=== PATIENT | female | born 1995 | race Caucasian/White ===

== ENCOUNTER 2023-07-02 20:39 | Outpatient (REF) | payer OTHER, SELFPAY ==
[2023-07-05 10:13] LABS: Age Gdln ACOG Testing Note (.); IGP, rfx Aptima HPV ASCU Note (.)
== END 2023-07-02 20:40 | disposition home or self-care (01) ==
LOC: LAB 20:39
PROVIDERS: Visit Provider Obstetrics & Gynecology
DX: Z01.419 Encounter for gynecological examination (general) (routine) without abnormal findings (principal)
CPT/HCPCS: G0145

== ENCOUNTER 2024-07-08 | Outpatient (REF) | payer OTHER, SELFPAY ==
--- OUTSIDE RECORDS SUMMARY | 2024-07-09 09:37 | XMS_ITS | CCD ---
Author Organization [facility] Care Team Providers Care Diagnostic Tech Name Role Phone MARY, DR ENRIQUEZ Admitting Unavailable MARY, DR ENRIQUEZ Attending Unavailable HOUSE, DR CHRISTINE Primary Care Unavailable MARY, DR ENRIQUEZ Consulting Unavailable ZIEBER, DR KETTY Kumar Consulting Unavailable MARY, DR ENRIQUEZ Admitting Unavailable MARY, DR ENRIQUEZ Attending Unavailable HOUSE, DR CHRISTINE Primary Care Unavailable MARY, DR ENRIQUEZ Consulting Unavailable REQUEST, DR NONE LISTED Primary Care Unavaila ble KARASIK, DR ALANIS Admitting Unavailable KARASIK, DR ALANIS Attending Unavailable KARASIK, DR ALANIS Consulting Unavailable MARY, DR ENRIQUEZ Consulting Unavailable ZIEBER, DR KETTY Kumar Consulting Unavailable MARY, DR ENRIQUEZ Admitting Unavailable MARY, DR ENRIQUEZ Attending Unavailable MARY, DR ENRIQUEZ Consulting Unavailable REQUEST, DR NIEOT LISTED Primary Care Unavaila ble MARY, DR ENRIQUEZ Admitting Unavailable MARY, DR ENRIQUEZ Attending Unavailable REQUEST, DR NIETO LISTED Primary Care Unavaila ble MARY, DR ENRIQUEZ Consulting Unavailable REQUEST, NONE LISTED Primary Care Unavaila ble KARASIK, DR ALANIS Admitting Unavailable KARASIK, DR ALANIS Attending Unavailable KARASIK, DR ALANIS Consulting Unavailable MARY, DR ENRIQUEZ Consulting Unavailable ZIEBER, DR KETTY Kumar Consulting Unavailable MARY, DR ENRIQUEZ Attending Unavailable REQUEST, NONE LISTED Primary Care Unavaila ble MARY, DR ENRIQUEZ Consulting Unavailable MARY, DR ENRIQUEZ Admitting Unavailable ZIEBER, DR KETTY Kumar Consulting Unavailable REQUEST, NONE LISTED Primary Care Unavaila ble KARASIK, DR ALANIS Admitting Unavailable KARASIK, DR ALANIS Attending Unavailable KARASIK, DR ALANIS Consulting Unavailable MARY, DR ENRIQUEZ Consulting Unavailable ZIEBER, DR KETTY Kumar Consulting Unavailable MARY, DR ENRIQUEZ Admitting Unavailable MARY, DR ENRIQUEZ Attending Unavailable HOUSE, DR CHRISTINE Primary Care Unavailable MARY, DR ENRIQUEZ Consulting Unavailable MARY, DR ENRIQUEZ Admitting Unavailable MARY, DR ENRIQUEZ Attending Unavailable REQUEST, DR NONE LISTED Primary Care Unavaila ble MARY, DR ENRIQUEZ Consulting Unavailable MARY, DR ENRIQUEZ Admitting Unavailable MARY, DR ENRIQUEZ Attending Unavailable REQUEST, DR NONE LISTED Primary Care Unavaila ble MARY, DR ENRIQUEZ Consulting Unavailable ZIEBER, DR KETTY Kumar Consulting Unavailable MARY, DR ENRIQUEZ Admitting Unavailable MARY, DR ENRIQUEZ Attending Unavailable HOUSE, DR CHRISTINE Primary Care Unavailable MARY, DR ENRIQUEZ Consulting Unavailable MARY, DR ENRIQUEZ Admitting Unavailable MARY, DR ENRIQUEZ Attending Unavailable REQUEST, DR NONE LISTED Primary Care Unavaila ble MARY, DR ENRIQUEZ Consulting Unavailable ZIEBER, DR KETTY Kumar Consulting Unavailable MARY, DR ENRIQUEZ Admitting Unavailable MARY, DR ENRIQUEZ Attending Unavailable REQUEST, DR NONE LISTED Primary Care Unavaila ble WEST, DR CHANTELL Biggs Consulting Unavailable MARY, DR ENRIQUEZ Consulting Unavailable KARASIK, DR ALANIS Admitting Unavailable KARASIK, DR ALANIS Attending Unavailable REQUEST, DR NONE LISTED Primary Care Unavaila ble KARASIK, DR ALANIS Consulting Unavailable MARY, DR ENRIQUEZ Consulting Unavailable ZIEBER, DR KETTY Kumar Consulting Unavailable MARY, DR ENRIQUEZ Admitting Unavailable MARY, DR ENRIQUEZ Attending Unavailable REQUEST, DR NONE LISTED Primary Care Unavaila ble MARY, DR ENRIQUEZ Consulting Unavailable ZIEBER, DR KETTY Kumar Consulting Unavailable MARY, DR ENRIQUEZ Admitting Unavailable MARY, DR ENRIQUEZ Attending Unavailable REQUEST, NONE LISTED Primary Care Unavaila ble MARY, DR ENRIQUEZ Consulting Unavailable MARY, DR ENRIQUEZ Admitting Unavailable MARY, DR ENRIQUEZ Attending Unavailable REQUEST, NONE LISTED Primary Care Unavaila ble MARY, DR ENRIQUEZ Admitting Unavailable MARY, DR ENRIQUEZ Attending Unavailable HOUSE, DR CHRISTINE Primary Care Unavailable MARY, DR ENRIQUEZ Consulting Unavailable MARY, DR ENRIQUEZ Admitting Unavailable MARY, DR ENRIQUEZ Attending Unavailable REQUEST, DR NONE LISTED Primary Care Unavaila ble REQUEST, NONE LISTED Primary Care Unavaila ble KARASIK, DR ALANIS Admitting Unavailable KARASIK, DR ALANIS Attending Unavailable KARASIK, DR ALANIS Consulting Unavailable MARY, DR ENRIQUEZ Consulting Unavailable ZIEBER, DR KETTY Kumar Consulting Unavailable MARY, DR ENRIQUEZ Admitting Unavailable MARY, DR ENRIQUEZ Attending Unavailable REQUEST, DR NONE LISTED Primary Care Unavaila ble MARY, DR ENRIQUEZ Admitting Unavailable MARY, DR ENRIQUEZ Attending Unavailable REQUEST, NONE LISTED Primary Care Unavaila ble MARY, DR ENRIQUEZ Admitting Unavailable MARY, DR ENRIQUEZ Attending Unavailable REQUEST, NONE LISTED Primary Care Unavaila ble KARASIK, DR ALANIS Consulting Unavailable MARY, DR ENRIQUEZ Consulting Unavailable MORGOS, APOLINAR Consulting Unavailable MARY, DR ENRIQUEZ Procedure Practitioner Unavailab lizzie MARCANO, ADA SALMERON Consulting Unava ilable MARY, DR ENRIQUEZ Admitting Unavailable MARY, DR ENRIQUEZ Attending Unavailable REQUEST, NONE LISTED Primary Care Unavaila ble MARY, DR ENRIQUEZ Consulting Unavailable REQUEST, NONE LISTED Primary Care Unavaila ble KARASIK, DR ALANIS Admitting Unavailable KARASIK, DR ALANIS Attending Unavailable KARASIK, DR ALANIS Consulting Unavailable MARY, DR ENRIQUEZ Consulting Unavailable Rekha Ramos Unavailable MINA HERNANDEZ Attending Unavailable ZURI CASSIDY Attending Unavailable ZURI CASSIDY Attending Unavailable FURLONGNGHIA Attending Unavailable FURLONG, NGHIA G Referring Unavailable FURLONG, NGHIA G Primary Care Unavailable FURLONG, NGHIA Rosenbaum Attending Unavailable FURLONG, NGHIA G Primary Care Unavailable FURLONG, NGHIA G Attending Unavailable FURLONG, NGHIA G Referring Unavailable FURLONG, NGHIA G Primary Care Unavailable FURLONG, NGHIA G Referring Unavailable FURLONG, NGHIA G Primary Care Unavailable Furlong Nghia ROBLEDO Primary Care Provider Isaac Perez MD Primary Care Provider Medications Current Medications Medication Drug Class(es) Dates Sig (Normalized) Sig (Original) amoxicillin 875 mg oral tablet (2 sources) Penicillin-class Antibacterial Start: 08-11-2022 take 1 tablet by mouth every twelve hours Amoxicillin 875 MG 1 tablet Orally every 12 hrs for 10 days Jul, Active Start: 05-26-2022 take 1 capsule by [facility] every eight hours Amoxicillin 500 MG 1 capsule Orally three times a day for 10 day(s) May, Not-Taking Citalopram (1 source) Serotonin Reuptake Inhibitor CeleXA Active escitalopram 10 mg oral tablet (3 sources) Serotonin Reuptake Inhibitor Start: take 1 tablet by mouth in the morning escitalopram (LEXAPRO) 10 mg tablet Indications: Anxiety TAKE 1 TABLET (10 MG TOTAL) BY MOUTH IN THE MORNING 30 tablet 3 05/07/2024 Active Start: 01-31-2024 End: 05-07-2024 take 1 tablet by mouth in the morning escitalopram (LEXAPRO) 10 mg tablet Indications: Anxiety Take 1 tablet (10 mg total) by mouth in the morning. 30 tablet 2 01/31/2024 05/07/2024 Discontinued fluticasone propionate 0.05 mg/actuat metered dose nasal spray (1 source) Corticosteroid Start: 08-11-2022 take 1 spray(s) nasal route once daily Fluticasone Propionate 50 MCG/ACT 1 spray in each nostril Nasally Once a day for 21 days Jul, Active lamoTRIgine (2 sources) Mood Stabilizer, Anti-epileptic Agent lamoTRIgine 25 MG (Prior Auth: Rx Ref#:[id number]) Oral for 30 Not-Taking LaMICtal Active norethindrone 0.35 mg oral tablet (2 sources) Start: 04-13-2023 take 1 tablet by mouth once daily Incassia 0.35 MG tablet Indications: Encounter for other general counseling and advice on contraception TAKE 1 TABLET BY MOUTH EVERY DAY FOR 28 DAYS 28 tablet 11 04/13/2023 Active Start: 04-13-2023 End: 03-20-2024 INCASSIA 0.35 mg tablet 03/1903/20/2024 Discontinued (Therapy completed) Problems Active Problems Problem Classification Problem Date Documented Da te Episodic/Chronic Anxiety disorders (3 sources) Anxiety disorder, unspecified; Translations: [Anxiety] Onset: 01-31-2024 05-07-2024 Chronic Diabetes or abnormal glucose tolerance complicating ; childbirth; or the puerperium (7 sources) Gestational diabetes mellitus in childbirth, controlled by oral hypoglycemic drugs; Translations: [Gestational diabetes mellitus in , unspecified control] Onset: 03-29-2022 Episodic distress and abnormal forces of labor (1 source) Primary inadequate contractions; Translations: [PRIMARY INADEQUATE CONTRACTIONS] Onset: 04-11-2022 Episodic Immunizations and screening for infectious disease (3 sources) Encounter for screening for human papillomavirus (HPV); Translations: [Encounter for screening for infections with a predominantly sexual mode of transmission] Onset: 09-16-2021 Episodic Malposition; malpresentation (1 source) Maternal care for high head at term, not applicable or unspecified; Translations: [MATERNAL CARE HIGH HEAD TERM NA/UNS] Onset: 04-11-2022 Episodic Menstrual disorders (4 sources) Irregular menstruation, unspecified; Translations: [IRREGULAR MENSTRUATION UNSPECIFIED] Onset: 09-14-2021 Chronic Mood disorders (3 sources) Bipolar disorder, most recent episode depression; Translations: [Bipolar disorder, unspecified] Onset: 04-16-2023 03-20-2024 Chronic Nausea and vomiting (1 source) Vomiting Onset: 01-01-2024 Episodic Other aftercare (1 source) shelter (current) use of aspirin; Translations: [[facility] CURRENT USE OF ASPIRIN] Onset: 04-11-2022 Episodic Other aftercare (1 source) Other correction (current) drug therapy; Translations: [OTH [facility] CURRENT DRUG THERAPY] Onset: 04-11-2022 Episodic Other gastrointestinal disorders (1 source) Diarrhea Onset: 01-01-2024 Episodic Other nutritional; endocrine; and metabolic disorders (2 sources) Other obesity due to excess calories; Translations: [Other obesity due to excess calories] Onset: 04-16-2023 Chronic Other nutritional; endocrine; and metabolic disorders (2 sources) Body mass index (BMI) 38.0-38.9, adult; Translations: [Body mass index (BMI) 38.0-38.9, adult] Onset: 04-16-2023 Chronic Other nutritional; endocrine; and metabolic disorders (3 sources) Obesity caused by energy imbalance; Translations: [Class 2 obesity due to excess calories without serious comorbidity with body mass index (BMI) of 38.0 to 38.9 in adult] Onset: 04-16-2023 03-20-2024 Chronic Other and delivery including normal (13 sources) Encounter for care and examination of lactating mother; Translations: [Encounter for routine follow-up] Onset: 11-04-2021 Episodic Other screening for suspected conditions (not mental disorders or infectious disease) (15 sources) Encounter for screening for malignant neoplasm of cervix; Translations: [Encounter for screening for Streptococcus B] Onset: 09-16-2021 Episodic Other upper respiratory infections (1 source) Acute pharyngitis, unspecified Episodic Otitis media and related conditions (1 source) Otitis media, unspecified, bilateral Episodic Residual codes; unclassified (1 source) 39 weeks gestation of ; Translations: [39 WEEKS GESTATION OF ] Onset: 04-11-2022 Episodic Unclassified (1 source) CONTACT W/AND (SUSP) EXPOS COVID-19; Translations: [CONTACT W/AND (SUSP) EXPOS COVID-19] Onset: 04-11-2022 Unclassified (2 sources) Obesity, class 2; Translations: [Obesity, class 2] Onset: 04-16-2023 Unclassified (1 source) Annual Exam Onset: 03-20-2024 Unclassified (1 source) FMLA Onset: 01-01-2024 Past or Other Problems Problem Classification Problem Date Documented Date Episodic/Chronic Administrative/social admission (1 source) Dietary counseling and surveillance; Translations: [DIETARY COUNSELING AND SURVEILLANCE] Onset: 11-25-2021 Episodic Diabetes mellitus without complication (4 sources) Other abnormal glucose; Translations: [OTHER ABNORMAL GLUCOSE] Onset: 11-15-2021 Episodic Mood disorders (2 sources) Mood disorders Onset: 04-16-2023 04-16-2023 Other complications of (1 source) Other placental disorders, first trimester; Translations: [OTH PLACENTAL DISORDER FIRST TRI] Onset: 08-29-2021 Episodic Other female genital disorders (4 sources) Other specified noninflammatory disorders of vagina; Translations: [OTH SPEC NONINFLAMMATORY D/O VAGINA] Onset: 03-13-2022 Episodic Residual codes; unclassified (1 source) 38 weeks gestation of ; Translations: [38 WEEKS GESTATION OF ] Onset: 03-24-2022 Episodic Residual codes; unclassified (1 source) 37 weeks gestation of ; Translations: [37 WEEKS GESTATION OF ] Onset: 03-17-2022 Episodic Residual codes; unclassified (1 source) 36 weeks gestation of ; Translations: [36 WEEKS GESTATION OF ] Onset: 03-09-2022 Episodic Residual codes; unclassified (1 source) 34 weeks gestation of ; Translations: [34 WEEKS GESTATION OF ] Onset: 02-26-2022 Episodic Residual codes; unclassified (1 source) 33 weeks gestation of ; Translations: [33 WEEKS GESTATION OF ] Onset: 02-16-2022 Episodic Residual codes; unclassified (1 source) 32 weeks gestation of ; Translations: [32 WEEKS GESTATION OF ] Onset: 02-10-2022 Episodic Residual codes; unclassified (1 source) 9 weeks gestation of ; Translations: [9 WEEKS GESTATION OF ] Onset: 08-29-2021 Episodic Unclassified (1 source) Contact with and (suspected) exposure to covid-19 Z20.822 Unclassified (2 sources) Onset: 04-16-2023 04-16-2023 Results Test Name Value Interpretation Reference Range Facility COMPREHENSIVE METABOLIC PANE [facility] 03-20-2024 Albumin [Mass/Vol] 4.5 g/dL Normal 3.2-5.3 [facility] Comment on above: Performed By: #### C JAYDEN, 44525-3, 6-3 #### [facility] ([id number]) [address], [address] [place] [address] ALP [Catalytic activity/Vol] 64 U/L Normal 39-130 [facility] Comment on above: Performed By: #### Jeb CARPENTER, 74926-0, 6-3 #### [facility] ([id number]) [address], [address] [place] [address] ALT [Catalytic activity/Vol] 15 U/L Normal 0-31 [facility] Comment on above: Performed By: #### Jeb CARPENTER, 12175-8, 6-3 #### [facility] ([id number]) [address], [address] [place] [address] Anion gap [Moles/Vol] 11 mmol/L Normal 5-15 [facility] Comment on above: Performed By: #### Jeb CARPENTER, 20949-0, 3015-3 #### [facility] ([id number]) [address], [address] [place] [address] AST [Catalytic activity/Vol] 20 U/L Normal 0-41 [facility] Comment on above: Performed By: #### C JAYDEN, 87834-5, 6-3 #### [facility] ([id number]) [address], [address] [place] [address] Bilirubin [Mass/Vol] 0.3 mg/dL Normal 0.3-1.2 [facility] Comment on above: Performed By: #### C JAYDEN, 59515-5, 3015-3 #### [facility] ([id number]) [address], [address] [place] [address] Calcium [Mass/Vol] 9.6 mg/dL Normal 8.5-10.5 [facility] Comment on above: Performed By: #### Jeb CARPENTER, 37710-0, 3015-3 #### [facility] ([id number]) [address], [address] [place] [address] Chloride [Moles/Vol] 101 mmol/L Normal 98-109 [facility] Comment on above: Performed By: #### Jeb CARPENTER, 38187-3, 3015-3 #### [facility] ([id number]) [address], [address] [place] [address] CO2 [Moles/Vol] 24 mmol/L Normal 22-32 [facility] Comment on above: Performed By: #### Jeb CARPENTER, 83718-9, 6-3 #### [facility] ([id number]) [address], [address] [place] [address] Creatinine [Mass/Vol] 0.95 mg/dL Normal 0.40-1.00 [facility] Comment on above: Result Comment: METH OD TRACEABLE TO IDMS STANDARD Performed By: #### Jeb CARPENTER, 91531-0, 3015-3 #### [facility] ([id number]) [address], [address] [place] [address] GFR/1.73 sq M.predicted among non-blacks MDRD (S/P/Bld) [Vol rate/Area] 85 mL/min/{1.73_m2} Normal >59 [facility] Comment on above: Result Comment: Reported eGFR is based on the CKD-EPI 2020 equation that does not use a race coefficient. Performed By: #### Jeb CARPENTER, 75946-2, 3015-3 #### [facility] ([id number]) [address], [address] [place] [address] Glucose [Mass/Vol] 81 mg/dL Normal 65-99 [facility] Comment on above: Performed By: #### Jeb CARPENTER, 58782-5, 3015-3 #### [facility] ([id number]) [address] [address] [place] [address] Potassium [Moles/Vol] 3.6 mmol/L Normal 3.5-5.0 [facility] Comment on above: Performed By: #### Jeb CARPENTER, 25587-6, 3015-3 #### [facility] ([id number]) [address] [place] [address] Protein [Mass/Vol] 7.9 g/dL Normal 6.0-8.0 [facility] Comment on above: Performed By: #### Jeb CARPENTER, 65177-6, 3015-3 #### [facility] ([id number]) [address], [address] [place] [address] Sodium [Moles/Vol] 136 mmol/L Normal 134-146 [facility] Comment on above: Performed By: #### Jeb CARPENTER, 97646-4, 3015-3 #### [facility] ([id number]) [address] [address] [place] [address] Urea nitrogen [Mass/Vol] 24 mg/dL High 5-23 [facility] Comment on above: Performed By: #### Jeb CARPENTER, 30908-6, 6-3 #### [facility] ([id number]) [address], [address] [place] [address] Lipid 1996 panelon 4 Cholesterol [Mass/Vol] 208 mg/dL High 150-200 [facility] Comment on above: Performed By: #### Jeb CARPENTER, 93492-4, 3015- #### [facility] ([id number]) [address], [address] [place] [address] Cholesterol in HDL [Mass/Vol] 43 mg/dL Normal >39 [facility] Comment on above: Result Comment: HDL <40 mg/dL - High Risk HDL > or = 40mg/dL- Desirable HDL >60 mg/dL - Negative Risk Performed By: #### Jeb CARPENTER, 83873-1, 3015-3 #### [facility] ([id number]) [address], [address] [place] [address] Cholesterol in LDL [Mass/Vol] 125 mg/dL Normal <130 [facility] Comment on above: Result Comment: LDL <100 mg/dL - Desirable LDL >160 mg/dL - High Risk Performed By: #### Jeb CARPENTER, 21971-5, 3015-3 #### [facility] ([id number]) [address], [address] [place] [address] Cholesterol in VLDL [Mass/Vol] 40 mg/dL High 0-30 [facility] Comment on above: Performed By: #### Jeb CARPENTER, 95948-3, 3016-3 #### [facility] ([id number]) [address], [address] [place] [address] CHOLESTEROL:HDL 4.8 Normal 1.0-5.0 [facility] Comment on above: Performed By: #### Jeb CARPENTER, 59553-7, 3016-3 #### [facility] ([id number]) [address], [address] [place] [address] Triglyceride [Mass/Vol] 201 mg/dL High 27-150 [facility] Comment on above: Performed By: #### Jeb CARPENTER, 50250-7, 3016-3 #### [facility] ([id number]) [address], [address] [place] [address] TSH Qnon 03-20-2024 TSH 2.89 uIU/mL Normal 0.49-4.67 [facility] Comment on above: Performed By: #### Jeb CARPENTER, 81345-0, 6-3 #### [facility] ([id number]) [address], [address] [place] [address] COVID/FLU/RSV RT-PCRon 08-11 SARS-CoV-2 (COVID-19) RNA NADIA+probe Ql (Unsp spec) Negative [employer] [facility] [employer] Other COVID/FLU/RSV RT-PCR Negative [facility] [employer] Other Quick Strepon 08-11-2022 S. pyogenes Org specific cx Ql (Throat) Negative [employer] [facility] [employer] Other Quick Strep [employer] [facility] [employer] Other PAP ACOG PANEL 2: 21 to 29on 07-03-2022 . . Normal [facility] Comment on above: Performed By: #### 4 [id number] ####[facility] [address] [place], [place] [address]YpKristopher Goodman Age Gdln ACOG Testing 21-29 Normal [facility] Comment on above: Performed By: #### 4 [id number] ####[facility] [address] [place], [place] [address]DrKristopher Goodman DIAGNOSIS: Comment Normal [facility] Comment on above: Result Comment: NEGA TIVE FOR INTRAEPITHELIAL LESION OR MALIGNANCY. Performed By: #### 4 [id number] ####[facility] [address] [place], [place] [address]DrKristopher Goodman Methodology: Comment Normal [facility] Comment on above: Result Comment: This liquid based ThinPrep(R) pap test was screened with the use of an image guided system. Performed By: #### 4 [id number] ####[facility] [address] [place], [place] [address]DrKristopher Goodman Note: Comment Normal [facility] Comment on above: Result Comment: The Pap smear is a screening test designed to aid in the detection of premalignant and malignant conditions of the uterine cervix. It is not a diagnostic procedure and should not be used as the sole means of detecting cervical cancer. Both false-positive and false-negative reports do occur. . Performed By: #### 4 [id number] ####[facility] [address] [place], [place] [address]DrKristopher Goodman Performed by: Comment Normal [facility] Comment on above: Result Comment: Mily Ribeiro, Industrial Laborer (ASCP) Performed By: #### 4 [id number] ####[facility] [address] [place], [place] [address]DrKristopher Goodman Reflex Criteria: Comment Normal [facility] Comment on above: Result Comment: The HPV DNA reflex criteria were not met with this specimen result therefore, no HPV testing was performed. . Performed By: #### 4 [id number] ####[facility] [address] [place], [place] [address]DrKristopher Goodman Specimen adequacy: Comment Normal [facility] Comment on above: Result Comment: Sati sfactory for evaluation. Endocervical and/or squamous metaplastic cells (endocervical component) are present. Performed By: #### 4 [id number] ####[facility] [address] [place] [address]Dr. Jannie Goodman CBC AUTO DIFFon 04-02-2022 BASO # 0.0 103/ul Normal 0.0-0.1 [facility] Comment on above: Performed By: #### P LT #### [facility] [address] [place] [address] [address] Jannie Goodman Basophils/100 WBC (Bld) 0.2 % Normal 0.2-2.0 [facility] Comment on above: Performed By: #### P LT #### [facility] [address] [place] [address] [address] Jannie Goodman EO # 0.1 103/ul Normal 0.0-0.7 [facility] Comment on above: Performed By: #### P LT #### [facility] [address] [address] [address] Jannie Goodman Eosinophils/100 WBC (Bld) 0.4 % Critically low 0.9-7.0 [facility] Comment on above: Performed By: #### P LT #### [facility] [address] [place] [address] [address] Jannie Goodman Erythrocyte distribution width (RBC) [Ratio] 14.0 % Normal 11.0-15.0 [facility] Comment on above: Performed By: #### P LT #### [facility] [address] [address] [address] Jannie Goodman Hematocrit (Bld) [Volume fraction] 21.2 % Critically low 36.0-48.0 [facility] Comment on above: Performed By: #### P LT #### [facility] [address] [address] [address] Jannie Goodman Hemoglobin (Bld) [Mass/Vol] 6.9 g/dL Critically low 12.0-16.0 [facility] Comment on above: Performed By: #### P LT #### [facility] [address] [address] [address] Jannie Goodman IG # 0.05 10e3/ul Critically high 0.00-0.03 [facility] Comment on above: Performed By: #### P LT #### [facility] [address] [address] [address] Jannie Goodman IG % 0.4 % Normal 0.0-0.5 [facility] Comment on above: Performed By: #### P LT #### [facility] [facility] [address] [address] [address] Jannie Goodman LYMPH # 2.0 103/ul Normal 1.2-3.8 [facility] Comment on above: Performed By: #### P LT #### [facility] [address] [place] [address] Dr. Jannie Goodman Lymphocytes/100 WBC (Bld) 16.7 % Critically low 20.5-60.0 [facility] Comment on above: Performed By: #### P LT #### [facility] [address] [place] [address] Dr. Jannie Goodman MANUAL DIFF REQ NO Normal [facility] Comment on above: Performed By: #### P LT #### [facility] [address] [place] [address] Dr. Jannie Goodman MCH (RBC) [Entitic mass] 28.6 pg Normal 26.7-34.0 [facility] Comment on above: Performed By: #### P LT #### [facility] [address] [place] [address] Dr. Jannie Goodman MCHC (RBC) [Mass/Vol] 32.5 g/dL Normal 29.9-35.2 [facility] Comment on above: Performed By: #### P LT #### [facility] [address] [place] [address] Dr. Jannie Goodman MCV (RBC) [Entitic vol] 88.0 fL Normal 81.0-99.0 [facility] Comment on above: Performed By: #### P LT #### [facility] [address] [place] [address] Dr. Jannie Goodman MONO # 0.8 103/ul Normal 0.3-0.8 [facility] Comment on above: Performed By: #### P LT #### [facility] [address] [address] [address] Jannie Goodman Monocytes/100 WBC (Bld) 6.5 % Normal 1.7-12.0 [facility] Comment on above: Performed By: #### P LT #### [facility] [address] [address] [address] Jannie Goodman NEUT # 9.2 103/ul Critically high 1.4-6.5 [facility] Comment on above: Performed By: #### P LT #### [facility] [address] [address] [address] Jannie Goodman Neutrophils/100 WBC (Bld) 75.8 % Critically high 43.0-75.0 [facility] Comment on above: Performed By: #### P LT #### [facility] [address] [place] [address] Dr. Jannie Goodman Platelet mean volume (Bld) [Entitic vol] 10.1 fL Normal 9.5-13.5 [facility] Comment on above: Performed By: #### P LT #### [facility] [address] [address] [address] Jannie Goodman PLT 122 103/ul Critically low 150-450 [facility] Comment on above: Performed By: #### P LT #### [facility] [address] [address] [address] Jannie Goodman RBC 2.41 106/ul Critically low 4.20-5.40 [facility] Comment on above: Performed By: #### P LT #### [facility] [address] [address] [address] Jannie Goodman WBC 12.1 103/ul Critically high 4.0-11.0 [facility] Comment on above: Performed By: #### P LT #### [facility] [address] [address] [address] Jannie Goodman POINT OF CARE GLUCOSEon 03-18 Glucose [Mass/Vol] 111 mg/dL Critically high 74-106 [facility] Comment on above: Performed By: #### P LT #### [facility] [address] [address] [address] Jannie Goodman LDHon 03-31-2022 LDH 116 U/L Normal 81-234 [facility] Comment on above: Performed By: #### H CVPCRR #### [facility] [address] [address] [address] Jannie Goodman PLATELET COUNTon 03-31-2022 PLT 179 103/ul Normal 150-450 [facility] Comment on above: Performed By: #### P LT #### [facility] [address] [address] [address] Jannie Goodman PROF 14(COMP METB)on 022 Albumin [Mass/Vol] 2.6 g/dL Critically low 3.4-5.0 [facility] Comment on above: Performed By: #### H CVPCRR #### [facility] [address] [place] [address] Dr. Jannie Goodman Albumin/Globulin [Mass ratio] 0.7 {ratio} Normal [facility] Comment on above: Performed By: #### H CVPCRR #### [facility] [address] [address] [address] Jannie Goodman ALP [Catalytic activity/Vol] 144 U/L Critically high 46-116 [facility] Comment on above: Performed By: #### H CVPCRR #### [facility] [address] [place] [address] Dr. Jannie Goodman ALT [Catalytic activity/Vol] 16 U/L Normal 14-59 [facility] Comment on above: Performed By: #### H CVPCRR #### [facility] [address] [address] [address] Jannie Goodman Anion gap [Moles/Vol] 15.1 mmol/L Normal [facility] Comment on above: Performed By: #### H CVPCRR #### [facility] [address] [place] [address] Dr. Jannie Goodman AST [Catalytic activity/Vol] 13 U/L Critically low 15-37 [facility] Comment on above: Performed By: #### H CVPCRR #### [facility] [address] [address] [address] Jannie Goodman Bilirubin [Mass/Vol] 0.2 mg/dL Normal 0.2-1.0 [facility] Comment on above: Performed By: #### H CVPCRR #### [facility] [address] [address] [address] Jannie Goodman Calcium [Mass/Vol] 8.5 mg/dL Normal 8.5-10.1 [facility] Comment on above: Performed By: #### H CVPCRR #### [facility] [address] [place] [address] Dr. Jannie Goodman Chloride [Moles/Vol] 105 mmol/L Normal 98-107 [facility] Comment on above: Performed By: #### H CVPCRR #### [facility] [address] [place] [address] Dr. Jannie Goodman CO2 [Moles/Vol] 19.9 mmol/L Critically low 21.0-32.0 [facility] Comment on above: Performed By: #### H CVPCRR #### [facility] [address] [place] [address] Dr. Jannie Goodman Creatinine [Mass/Vol] 0.93 mg/dL Normal 0.55-1.02 [facility] Comment on above: Performed By: #### H CVPCRR #### [facility] [address] [place] [address] Dr. Jannie Goodman EGFR-AF MONTSERRATIAN >60 Normal >=60 [facility] Comment on above: Performed By: #### H CVPCRR #### [facility] [address] [place] [address] Dr. Jannie Goodman EGFR-NON AF MONTSERRATIAN >60 Normal >=60 [facility] Comment on above: Performed By: #### H CVPCRR #### [facility] [address] [place] [address] Dr. Jannie Goodman Globulin (S) [Mass/Vol] 3.9 g/dL Normal [facility] Comment on above: Performed By: #### H CVPCRR #### [facility] [address] [address] [address] Jannie Goodman Glucose [Mass/Vol] 121 mg/dL Critically high 74-106 [facility] Comment on above: Performed By: #### H CVPCRR #### [facility] [address] [place] [address] Dr. Jannie Goodman Potassium [Moles/Vol] 4.0 mmol/L Normal 3.5-5.1 [facility] Comment on above: Performed By: #### H CVPCRR #### [facility] [address] [place] [address] Dr. Jannie Goodman Protein [Mass/Vol] 6.5 g/dL Normal 6.4-8.2 [facility] Comment on above: Performed By: #### H CVPCRR #### [facility] [address] [place] [address] Dr. Jannie Goodman Sodium [Moles/Vol] 136 mmol/L Normal 136-145 [facility] Comment on above: Performed By: #### H CVPCRR #### [facility] [address] [place] [address] Dr. Jannie Goodman Urea nitrogen [Mass/Vol] 14.0 mg/dL Normal 7.0-18.0 [facility] Comment on above: Performed By: #### H CVPCRR #### [facility] [address] [place] [address] Dr. Jannie Goodman Urea nitrogen/Creatinine [Mass ratio] 15.1 mg/mg Normal [facility] Comment on above: Performed By: #### H CVPCRR #### [facility] [address] [place] [address] Dr. Jannie Goodman URIC ACID SERUMon 03-31-2022 Urate [Mass/Vol] 7.3 mg/dL Critically high 2.6-6.0 [facility] Comment on above: Performed By: #### H CVPCRR #### [facility] [address] [place] [address] Dr. Jannie Goodman CBC AUTO DIFFon 03-30-2022 BASO # 0.0 103/ul Normal 0.0-0.1 [facility] Comment on above: Performed By: #### P LT #### [facility] [address] [address] [address] Jannie Goodman Basophils/100 WBC (Bld) 0.1 % Critically low 0.2-2.0 [facility] Comment on above: Performed By: #### P LT #### [facility] [address] [place] [address] Dr. Jannie Goodman EO # 0.0 103/ul Normal 0.0-0.7 [facility] Comment on above: Performed By: #### P LT #### [facility] [address] [place] [address] Dr. Jannie Goodman Eosinophils/100 WBC (Bld) 0.4 % Critically low 0.9-7.0 [facility] Comment on above: Performed By: #### P LT #### [facility] [address] [place] [address] Dr. Jannie Goodman Erythrocyte distribution width (RBC) [Ratio] 13.2 % Normal 11.0-15.0 [facility] Comment on above: Performed By: #### P LT #### [facility] [address] [place] [address] Dr. Jannie Goodman Hematocrit (Bld) [Volume fraction] 31.1 % Critically low 36.0-48.0 [facility] Comment on above: Performed By: #### P LT #### [facility] [address] [place] [address] Dr. Jannie Goodman Hemoglobin (Bld) [Mass/Vol] 10.2 g/dL Critically low 12.0-16.0 [facility] Comment on above: Performed By: #### P LT #### [facility] [address] [place] [address] Dr. Jannie Goodman IG # 0.01 10e3/ul Normal 0.00-0.03 [facility] Comment on above: Performed By: #### P LT #### [facility] [address] [place] [address] Dr. Jannie Goodman IG % 0.1 % Normal 0.0-0.5 [facility] Comment on above: Performed By: #### P LT #### [facility] [address] [address] [address] Jannie Goodman LYMPH # 1.7 103/ul Normal 1.2-3.8 [facility] Comment on above: Performed By: #### P LT #### [facility] [address] [address] [address] Jannie Goodman Lymphocytes/100 WBC (Bld) 25.7 % Normal 20.5-60.0 [facility] Comment on above: Performed By: #### P LT #### [facility] [address] [place] [address] Dr. Jannie Goodman MANUAL DIFF REQ NO Normal [facility] Comment on above: Performed By: #### P LT #### [facility] [address] [place] [address] Dr. Jannie Goodman MCH (RBC) [Entitic mass] 27.9 pg Normal 26.7-34.0 [facility] Comment on above: Performed By: #### P LT #### [facility] [address] [place] [address] Dr. Jannie Goodman MCHC (RBC) [Mass/Vol] 32.8 g/dL Normal 29.9-35.2 [facility] Comment on above: Performed By: #### P LT #### [facility] [address] [place] [address] Dr. Jannie Goodman MCV (RBC) [Entitic vol] 85.0 fL Normal 81.0-99.0 [facility] Comment on above: Performed By: #### P LT #### [facility] [address] [place] [address] Dr. Jannie Goodman MONO # 0.5 103/ul Normal 0.3-0.8 [facility] Comment on above: Performed By: #### P LT #### [facility] [address] [place] [address] Dr. Jannie Goodman Monocytes/100 WBC (Bld) 6.8 % Normal 1.7-12.0 [facility] Comment on above: Performed By: #### P LT #### [facility] [address] [address] [address] Jannie Goodman NEUT # 4.5 103/ul Normal 1.4-6.5 [facility] Comment on above: Performed By: #### P LT #### [facility] [address] [address] [address] Jannie Goodman Neutrophils/100 WBC (Bld) 66.9 % Normal 43.0-75.0 [facility] Comment on above: Performed By: #### P LT #### [facility] [address] [address] [address] Jannie Goodman Platelet mean volume (Bld) [Entitic vol] 10.6 fL Normal 9.5-13.5 [facility] Comment on above: Performed By: #### P LT #### [facility] [address] [place] [address] Dr. Jannie Goodman PLT 159 103/ul Normal 150-450 [facility] Comment on above: Performed By: #### P LT #### [facility] [address] [place] [address] Dr. Jannie Goodman RBC 3.66 106/ul Critically low 4.20-5.40 [facility] Comment on above: Performed By: #### P LT #### [facility] [address] [place] [address] Dr. Jannie Goodman WBC 6.7 103/ul Normal 4.0-11.0 [facility] Comment on above: Performed By: #### P LT #### [facility] [address] [place] [address] Dr. Jannie Goodman Covid-19 PCR ([facility])on 03-18 SARS-CoV-2 (COVID-19) RNA NADIA+probe Ql (Unsp spec) Not detected Normal NOT DETECTED [facility] Comment on above: Result Comment: When diagnostic testing is negative, the possibility of a false negative should be considered in the context of a patient's recent exposures and the presence of clinical signs and symptoms consistent with SARS-CoV-2. This test is not yet approved or cleared by the [place] FDA. When there are no FDA-approved or cleared tests available, and other criteria are met, FDA can make tests available under an emergency access mechanism called an Emergency Use Authorization (EUA). The EUA for this test is supported by the Program Aide of Health and Human Service's declaration that circumstances exist to justify the emergency use of in vitro diagnostics for the detection and/or diagnosis of the virus that causes COVID-19. This EUA will remain in effect for the duration of the COVID-19 declaration justifying emergency of IVDs, unless it is terminated or revoked by the FDA (after which the test may no longer be used). Performed By: #### [facility] ####[facility] [address] [address] Jannie Goodman DRUG SCREEN RAPID (URINE)on 03-30-2022 AMP Negative Normal NEGATIVE [facility] Comment on above: Performed By: #### P LT #### [facility] [address] [place] [address] Dr. Jannie Goodman BAR Negative Normal NEGATIVE [facility] Comment on above: Performed By: #### P LT #### [facility] [address] [place] [address] Dr. Jannie Goodman BUP Negative Normal NEGATIVE [facility] Comment on above: Performed By: #### P LT #### [facility] [address] [place] [address] Dr. Jannie Goodman BZO Negative Normal NEGATIVE [facility] Comment on above: Performed By: #### P LT #### [facility] [address] [place] [address] Dr. Jannie Goodman JEWEL Negative Normal NEGATIVE [facility] Comment on above: Performed By: #### P LT #### [facility] [address] [place] [address] Dr. Jannie Goodman CUT-OFFS SEE BELOW Normal [facility] Comment on above: Result Comment: AMP (Amphetamine): 500ng/mL, BAR (Barbituates): 200 ng/mL, BZO (Benzodiazepines): 150 ng/mL, BUP (Buprenorphine): 10 ng/mL, JEWEL (Cocaine): 150 ng/mL, mAMP (Methamphetamine): 500 ng/mL, MTD (Methadone): 200 ng/mL, OPI (Opiates): 100 ng/mL, OXY (Oxycodone): 100 ng/mL, PCP (Phencyclidine): 25 ng/mL, PPX (Propoxyphene): 300 ng/mL, THC (Cannabinoids): 50 ng/mL, TCA (Trycyclic Antidepressants): 300 ng/mL Performed By: #### P LT #### [facility] [address] [place] [address] Dr. Jannie Goodman DRUG CUT HEADER DRUG CLASS TEST SYSTEM CUT-OFF CONCENTRATIONS ARE FOLLOWS: Normal [facility] Comment on above: Performed By: #### P LT #### [facility] [address] [place] [address] Dr. Jannie Goodman mAMP Negative Normal NEGATIVE [facility] Comment on above: Performed By: #### P LT #### [facility] [address] [place] [address] Dr. Jannie Goodman MTD Negative Normal NEGATIVE [facility] Comment on above: Performed By: #### P LT #### [facility] [address] [place] [address] Dr. Jannie Goodman OPI Negative Normal NEGATIVE [facility] Comment on above: Performed By: #### P LT #### [facility] [address] [place] [address] Dr. Jannie Goodman OXY Negative Normal NEGATIVE [facility] Comment on above: Performed By: #### P LT #### [facility] [address] [place] [address] Dr. Jannie Goodman PCP Negative Normal NEGATIVE [facility] Comment on above: Performed By: #### P LT #### [facility] [address] [place] [address] Dr. Jannie Goodman PPX Negative Normal NEGATIVE [facility] Comment on above: Performed By: #### P LT #### [facility] [address] [place] [address] Dr. Jannie Goodman TCA Negative Normal NEGATIVE [facility] Comment on above: Performed By: #### P LT #### [facility] [address] [address] [address] Jannie Goodman THC Negative Normal NEGATIVE [facility] Comment on above: Performed By: #### P LT #### [facility] [address] [address] [address] Jannie Goodman LDHon 03-30-2022 LDH 118 U/L Normal 81-234 [facility] Comment on above: Performed By: #### C MP, URIC, LDH ####[facility] [address] [address]Dr. Jannie Goodman PROF 14(COMP METB)on 022 Albumin [Mass/Vol] 2.5 g/dL Critically low 3.4-5.0 [facility] Comment on above: Performed By: #### C MP, URIC, LDH ####[facility] [address] [address]Dr. Jannie Goodman Albumin/Globulin [Mass ratio] 0.7 {ratio} Normal [facility] Comment on above: Performed By: #### C MP, URIC, LDH ####[facility] [address] [address]Dr. Jannie Goodman ALP [Catalytic activity/Vol] 140 U/L Critically high 46-116 [facility] Comment on above: Performed By: #### C MP, URIC, LDH ####[facility] [address] [address]Dr. Jannie Goodman ALT [Catalytic activity/Vol] 13 U/L Critically low 14-59 [facility] Comment on above: Performed By: #### C MP, URIC, LDH ####[facility] [address] [address]Dr. Jannie Goodman Anion gap [Moles/Vol] 10.9 mmol/L Normal [facility] Comment on above: Performed By: #### C MP, URIC, LDH ####[facility] [address] [address]Dr. Jannie Goodman AST [Catalytic activity/Vol] 12 U/L Critically low 15-37 [facility] Comment on above: Performed By: #### C MP, URIC, LDH ####[facility] [address] [address]Dr. Jannie Goodman Bilirubin [Mass/Vol] 0.2 mg/dL Normal 0.2-1.0 [facility] Comment on above: Performed By: #### C MP, URIC, LDH ####[facility] [address] [address]Dr. Jannie Goodman Calcium [Mass/Vol] 8.6 mg/dL Normal 8.5-10.1 [facility] Comment on above: Performed By: #### C MP, URIC, LDH ####[facility] [address] [address]Dr. Jannie Goodman Chloride [Moles/Vol] 105 mmol/L Normal 98-107 [facility] Comment on above: Performed By: #### C MP, URIC, LDH ####[facility] [address] [place], [place] [address]Dr. Jannie Goodman CO2 [Moles/Vol] 24.1 mmol/L Normal 21.0-32.0 [facility] Comment on above: Performed By: #### C MP, URIC, LDH ####[facility] [address] [place], [place] [address]Dr. Jannie Goodman Creatinine [Mass/Vol] 0.90 mg/dL Normal 0.55-1.02 [facility] Comment on above: Performed By: #### C MP, URIC, LDH ####[facility] [address] [address]Dr. Jannie Goodman EGFR-AF MONTSERRATIAN >60 Normal >=60 [facility] Comment on above: Performed By: #### C MP, URIC, LDH ####[facility] [address] [address]Dr. Jannie Goodman EGFR-NON AF MONTSERRATIAN >60 Normal >=60 [facility] Comment on above: Performed By: #### C MP, URIC, LDH ####[facility] [address] [place], [place] [address]Dr. Jannie Goodman Globulin (S) [Mass/Vol] 3.8 g/dL Normal [facility] Comment on above: Performed By: #### C MP, URIC, LDH ####[facility] [address] [address]Dr. Jannie Goodman Glucose [Mass/Vol] 97 mg/dL Normal 74-106 [facility] Comment on above: Performed By: #### C MP, URIC, LDH ####[facility] [address] [address]Dr. Jannie Goodman Potassium [Moles/Vol] 4.0 mmol/L Normal 3.5-5.1 [facility] Comment on above: Performed By: #### C MP, URIC, LDH ####[facility] [address] [address]Dr. Jannie Goodman Protein [Mass/Vol] 6.3 g/dL Critically low 6.4-8.2 [facility] Comment on above: Performed By: #### C MP, URIC, LDH ####[facility] [address] [address]Dr. Jannie Goodman Sodium [Moles/Vol] 136 mmol/L Normal 136-145 [facility] Comment on above: Performed By: #### C MP, URIC, LDH ####[facility] [address] [address]DrKristopher Goodman Urea nitrogen [Mass/Vol] 16.0 mg/dL Normal 7.0-18.0 [facility] Comment on above: Performed By: #### C MP, URIC, LDH ####[facility] [address] [address]Dr. Jannie Goodman Urea nitrogen/Creatinine [Mass ratio] 17.8 mg/mg Normal [facility] Comment on above: Performed By: #### C MP, URIC, LDH ####[facility] [address] [address]DrKristopher Goodman TYPE AND SCREENon 03-30-2022 TYPE AND SCREEN Negative Normal [facility] Comment on above: Performed By: #### T NS #### [facility] [address] [address] [address] Jannie Goodman URIC ACID SERUMon 03-30-2022 Urate [Mass/Vol] 7.3 mg/dL Critically high 2.6-6.0 [facility] Comment on above: Performed By: #### C MP, URIC, LDH ####[facility] [address] [address]Dr. Jannie Goodman US PREG BIOPHY W NON STRESSo n 03-29-2022 US PREG BIOPHY W NON STRESS EXAMINATION: US PREG BIOPHY W NON STRESS HISTORY: Gestational diabetes mellitus COMPARISON: Ultrasound from the biophysical 03/22/2022 TECHNIQUE: Ultrasound biophysical profile was performed. FINDINGS: BREATHING MOVEMENTS: 2.0 GROSS BODY MOVEMENTS: 2.0 TONE: 2.0 QUALITATIVE AMNIOTIC FLUID VOLUME: 2.0 PRESENTATION: CEPHALIC HEART RATE: 131.7 bpm bpm. AMNIOTIC FLUID VOLUME: 21.4 cm GESTATIONAL AGE: 39 weeks 0 days CONCLUSION: Total biophysical profile score 8.0. Electronically authenticated by: KETTY STEPHENSON Date: 2022-03-29 17:57 Normal [facility] US PREG BIOPHY W NON STRESSo n 03-23-2022 US PREG BIOPHY W NON STRESS EXAMINATION: US PREG BIOPHY W NON STRESS HISTORY: Gestational diabetes mellitus COMPARISON: No relevant comparison available. TECHNIQUE: Ultrasound biophysical profile was performed in the radiology department. FINDINGS: BREATHING MOVEMENTS: 2.0 GROSS BODY MOVEMENTS: 2.0 TONE: 2.0 QUALITATIVE AMNIOTIC FLUID VOLUME: 2.0 PRESENTATION: CEPHALIC HEART RATE: 128.0 bpm H.B./min AMNIOTIC FLUID VOLUME: 17.4 cm cm GESTATIONAL AGE: 38 weeks 0 days CONCLUSION: Total biophysical profile score: 8.0 Electronically authenticated by: CHATNELL RIBEIRO Date: 2022-03-23 16:49 Normal [facility] US PREG GROWTHon 03-23-2022 US PREG GROWTH EXAMINATION: US PREG GROWTH HISTORY: Gestational diabetes mellitus in childbirth COMPARISON: No relevant comparison available. FINDINGS: Heart Rate: 128.0 bpm Amniotic Fluid Volume: 17.4 cm Number: 1.0 Position: Cephalic presentation, longitudinal lie Maximum Vertical Pocket: 4.9 cm cm 3.7 cm cm 3.1 cm cm 5.7 cm cm BIOMETRY: BPD: 9.8 cm cm; 40 weeks 1 days; > 97% HC: 34.9 cmcm; 40 weeks 4 days, 86% AC: 36.8 cm cm; 40 weeks 5 days, > 97% FL: 6.9 cm cm; 35 weeks 2 days; 3.9 % % EFW: 3816.5 grams, 80 lbs. 7 oz., 92% FL/AC: 18.7 FL/BPD: 70.3 HC/AC: 0.9 GESTATIONAL AGE: Age by EDC: 38 weeks 0 days STEFAN by EDC: 04/05/2022 Age by US: 39 weeks 1 day STEFAN by US: 03/28/2022 IMPRESSION: BPD and abdominal circumference greater than the 97th percentile Estimated weight at the 92nd percentile Electronically authenticated by: CHANTELL RIBEIRO Date: 2022-03-23 16:52 Normal [facility] US PREG BIOPHY W NON STRESSo n 03-16-2022 US PREG BIOPHY W NON STRESS EXAMINATION: US PREG BIOPHY W NON STRESS HISTORY: Gestational diabetes mellitus COMPARISON: Ultrasound biophysical 03/08/2022 TECHNIQUE: Ultrasound biophysical profile was performed. FINDINGS: BREATHING MOVEMENTS: 2.0 GROSS BODY MOVEMENTS: 2.0 TONE: 2.0 QUALITATIVE AMNIOTIC FLUID VOLUME: 2.0 PRESENTATION: CEPHALIC HEART RATE: 129.8 bpm bpm. AMNIOTIC FLUID VOLUME: 17.5 cm GESTATIONAL AGE: 37 weeks 0 days CONCLUSION: Total biophysical profile score 8.0. Electronically authenticated by: KETTY STEPHENSON Date: 2022-03-16 16:29 Normal [facility] VAGINITIS/VAGINOSIS DNA PROB Kodi 03-16-2022 Evelina species Negative Normal Negative [facility] Comment on above: Performed By: #### V AGINT #### [facility] [address] [place] [address] Dr. Jannie Goodman Gardnerella vaginalis Negative Normal Negative [facility] Comment on above: Performed By: #### V AGINT #### [facility] [address] [place] [address] Dr. Jannie Goodman Trichomonas vaginalis Negative Normal Negative [facility] Comment on above: Performed By: #### V AGINT #### [facility] [address] [place] [address] Dr. Jannie Goodman CHLAMYDIA/GONOCOCCUS NADIA ( AB/URINE/PAPon 03-15-2022 Chlamydia trachomatis, NADIA Negative Normal Negative [facility] Comment on above: Performed By: #### P LT #### [facility] [address] [place], [place] [address] Dr. Jannie Goodman Neisseria gonorrhoeae, NADIA Negative Normal Negative [facility] Comment on above: Performed By: #### P LT #### [facility] [address] [place], [place] [address] Dr. Jannie Goodman GROUP B STREP CULTUREon 02-17 S. agalactiae Ag Ql (Unsp spec) Culture Observations: NEGATIVE FOR GROUP B STREPTOCOCCUS. Normal [facility] Comment on above: Performed By: #### G BSCX ####[facility] [address] [place], [place] [address]SwDr. Jannie Goodman US PREG BIOPHY W NON STRESSo n 03-10-2022 US PREG BIOPHY W NON STRESS EXAMINATION: US PREG BIOPHY W NON STRESS HISTORY: Gestational diabetes mellitus COMPARISON: Ultrasound biophysical 03/01/2022 TECHNIQUE: Ultrasound biophysical profile was performed. FINDINGS: BREATHING MOVEMENTS: 2.0 GROSS BODY MOVEMENTS: 2.0 TONE: 2.0 QUALITATIVE AMNIOTIC FLUID VOLUME: 2.0 PRESENTATION: CEPHALIC HEART RATE: 125.6 bpm bpm. AMNIOTIC FLUID VOLUME: 16.3 cm GESTATIONAL AGE: 36 weeks 0 days CONCLUSION: Total biophysical profile score 8.0. Electronically authenticated by: KETTY STEPHENSON Date: 2022-03-09 22:26 Normal [facility] US PREG GROWTHon 03-10-2022 US PREG GROWTH EXAMINATION: US PREG GROWTH HISTORY: Gestational diabetes mellitus COMPARISON: Ultrasound growth 02/08/2022 FINDINGS: Heart Rate: 125.6 bpm Number: 1.0 Position: CEPHALIC Amniotic Fluid Volume: 16.3 cm Maximum Vertical Pocket: 6.2 cm BIOMETRY: BPD: 9.6 cm cm; 39 weeks 1 days; >97% HC: 34.0 cmcm; 39 weeks 1 days; 89% AC: 34.1 cm cm; 38 weeks 0 days; 97% FL: 6.7 cm cm; 34 weeks 3 days; 12% EFW: 3217.7 grams; 87% FL/AC: 19.6 FL/BPD: 69.8 HC/AC: 1.0 GESTATIONAL AGE: Age by EDC: 36 weeks 0 days STEFAN by EDC: 04/05/2022 Age by US: 37 weeks 5 days STEFAN by US: 03/24/2022 IMPRESSION: 1. Single live intrauterine with growth detailed above. 2. Biparietal diameter is greater than 97th percentile; abdominal circumference is at 97th percentile. Electronically authenticated by: KETTY STEPHENSON Date: 2022-03-09 22:14 Normal [facility] US PREG BIOPHY W NON STRESSo n 03-02-2022 US PREG BIOPHY W NON STRESS EXAMINATION: US PREG BIOPHY W NON STRESS HISTORY: Gestational diabetes mellitus COMPARISON: Ultrasound the biophysical 02/22/2022 TECHNIQUE: Ultrasound biophysical profile was performed. FINDINGS: BREATHING MOVEMENTS: 2.0 GROSS BODY MOVEMENTS: 2.0 TONE: 2.0 QUALITATIVE AMNIOTIC FLUID VOLUME: 2.0 PRESENTATION: CEPHALIC HEART RATE: 131.7 bpm bpm. AMNIOTIC FLUID VOLUME: 17.6 cm GESTATIONAL AGE: 35 weeks 0 days CONCLUSION: Total biophysical profile score 8.0. Electronically authenticated by: KETTY STEPHENSON Date: 2022-03-02 16:44 Normal [facility] US PREG BIOPHY W NON STRESSo n 02-23-2022 US PREG BIOPHY W NON STRESS EXAMINATION: US PREG BIOPHY W NON STRESS HISTORY: Gestational diabetes mellitus COMPARISON: Ultrasound biophysical 02/15/2022 TECHNIQUE: Ultrasound biophysical profile was performed. FINDINGS: BREATHING MOVEMENTS: 2.0 GROSS BODY MOVEMENTS: 2.0 TONE: 2.0 QUALITATIVE AMNIOTIC FLUID VOLUME: 2.0 PRESENTATION: CEPHALIC HEART RATE: 130.4 bpm bpm. AMNIOTIC FLUID VOLUME: 17.7 cm GESTATIONAL AGE: 34 weeks 0 days CONCLUSION: Total biophysical profile score 8.0. Electronically authenticated by: KETTY STEPHENSON Date: 2022-02-23 16:29 Normal [facility] US PREG BIOPHY W NON STRESSo n 02-15-2022 US PREG BIOPHY W NON STRESS EXAMINATION: US PREG BIOPHY W NON STRESS HISTORY: Gestational diabetes mellitus COMPARISON: Ultrasound biophysical 02/09/2022 TECHNIQUE: Ultrasound biophysical profile was performed. FINDINGS: BREATHING MOVEMENTS: 2.0 GROSS BODY MOVEMENTS: 2.0 TONE: 2.0 QUALITATIVE AMNIOTIC FLUID VOLUME: 2.0 PRESENTATION: CEPHALIC HEART RATE: 128.0 bpm bpm. AMNIOTIC FLUID VOLUME: 20.0 cm GESTATIONAL AGE: 33 weeks 0 days CONCLUSION: Total biophysical profile score 8.0. Electronically authenticated by: KETTY STEPHENSON Date: 2022-02-15 16:15 Normal [facility] US PREG BIOPHY W NON STRESSo n 02-09-2022 US PREG BIOPHY W NON STRESS EXAMINATION: US PREG BIOPHY W NON STRESS HISTORY: Gestational diabetes mellitus COMPARISON: Ultrasound biophysical 02/08/2022 TECHNIQUE: Ultrasound biophysical profile was performed. FINDINGS: BREATHING MOVEMENTS: 2.0 GROSS BODY MOVEMENTS: 2.0 TONE: 2.0 QUALITATIVE AMNIOTIC FLUID VOLUME: 2.0 PRESENTATION: CEPHALIC HEART RATE: 125.0 bpm bpm. AMNIOTIC FLUID VOLUME: 18.5 cm GESTATIONAL AGE: 32 weeks 1 days CONCLUSION: Total biophysical profile score 8.0. Electronically authenticated by: KETTY STEPHENSON Date: 2022-02-09 17:11 Normal [facility] US PREG BIOPHY W NON STRESS EXAMINATION: US PREG BIOPHY W NON STRESS HISTORY: Gestational diabetes mellitus COMPARISON: Ultrasound growth 02/08/2022 TECHNIQUE: Ultrasound biophysical profile was performed. FINDINGS: BREATHING MOVEMENTS: 0.0 GROSS BODY MOVEMENTS: 2.0 TONE: 2.0 QUALITATIVE AMNIOTIC FLUID VOLUME: 2.0 PRESENTATION: CEPHALIC HEART RATE: 135.7 bpm bpm. AMNIOTIC FLUID VOLUME: 21.7 cm GESTATIONAL AGE: 32 weeks 0 days CONCLUSION: Total biophysical profile score 6.0. Electronically authenticated by: KETTY STEPHENSON Date: 2022-02-08 22:03 Normal [facility] US PREG GROWTHon 02-08-2022 US PREG GROWTH EXAMINATION: US PREG GROWTH HISTORY: Gestational diabetes mellitus COMPARISON: Ultrasound growth 01/11/2022 FINDINGS: Heart Rate: 135.7 bpm Number: 1.0 Position: CEPHALIC Amniotic Fluid Volume: 21.7 cm Maximum Vertical Pocket: 7.5 cm BIOMETRY: BPD: 8.8 cm cm; 35 weeks 3 days; >97% HC: 32.1 cmcm; 36 weeks 2 days; >97% AC: 28.9 cm cm; 32 weeks 6 days; 74% FL: 6.3 cm cm; 32 weeks 4 days; 55% EFW: 2177.4 grams; 82% FL/AC: 21.9 FL/BPD: 72.0 HC/AC: 1.1 GESTATIONAL AGE: Age by EDC: 32 weeks 0 days STEFAN by EDC: 04/05/2022 Age by US: 34 weeks, 2 days STEFAN by US: 03/20/2022 IMPRESSION: 1. Single live intrauterine with growth detailed above. 2. Biparietal diameter and head circumference are greater than 97th percentile, similar to prior study. Electronically authenticated by: KETTY STEPHENSON Date: 2022-02-08 13:11 Normal [facility] US PREG GROWTHon 01-11-2022 US PREG GROWTH EXAMINATION: US PREG GROWTH HISTORY: Gestational diabetes mellitus COMPARISON: Ultrasound anatomy 11/16/2021 FINDINGS: Heart Rate: 141.0 bpm Number: 1.0 Position: CEPHALIC Amniotic Fluid Volume: 12.0 cm Maximum Vertical Pocket: 4.7 cm BIOMETRY: BPD: 7.7 cm cm; 30 weeks 5 days; >97% HC: 28.5 cmcm; 31 weeks 2 days; >97% AC: 23.8 cm cm; 28 weeks 0 days; 44% FL: 5.7 cm cm; 29 weeks 5 days; 83 % EFW: 1338.7 grams; 80% FL/AC: 23.9 FL/BPD: 74.0 HC/AC: 1.2 GESTATIONAL AGE: Age by EDC: 28 weeks 0 days STEFAN by EDC: 04/05/2022 Age by US: 30 weeks, 0 days STEFAN by US: 03/22/2022 IMPRESSION: 1. Single live intrauterine with growth detailed above. Electronically authenticated by: KETTY STEPHENSON Date: 2022-01-11 16:31 Normal [facility] HEMOGRAM AND PLATELon 2021 Hematocrit (Bld) [Volume fraction] 29.6 % Critically low 36.0-48.0 [facility] Comment on above: Performed By: #### H H ####[facility] [address] [place] [id number] Jannie Rex Hemoglobin (Bld) [Mass/Vol] 9.9 g/dL Critically low 12.0-16.0 [facility] Comment on above: Performed By: #### H H ####[facility] [address] [place] [id number]. Jannie Goodman MCH (RBC) [Entitic mass] 29.6 pg Normal 26.7-34.0 [facility] Comment on above: Performed By: #### H H ####[facility] [address] [place] [id number]. Jannie Goodman MCHC (RBC) [Mass/Vol] 33.4 g/dL Normal 29.9-35.2 [facility] Comment on above: Performed By: #### H H ####[facility] [address] [place] [address]Dr. Jannie Goodman MCV (RBC) [Entitic vol] 88.6 fL Normal 81.0-99.0 [facility] Comment on above: Performed By: #### H H ####[facility] [address] [place] [address]Dr. Jannie Goodman PLT 180 103/ul Normal 150-450 [facility] Comment on above: Performed By: #### H H ####[facility] [address] [place] [id number]. Jannie Goodman RBC 3.34 106/ul Critically low 4.20-5.40 [facility] Comment on above: Performed By: #### H H ####[facility] [address] [place] [id number]. Jannie Goodman WBC 10.5 103/ul Normal 4.0-11.0 [facility] Comment on above: Performed By: #### H H ####[facility] [address] [place], [place] [id number]. Jannie Goodman US PREG ANATOMY SINGLEon US PREG ANATOMY SINGLE EXAMINATION: US PREG ANATOMY SINGLE HISTORY: anatomy study COMPARISON: No relevant comparison available. TECHNIQUE: Transabdominal sonographic examination was performed for obstetrical and evaluation. FINDINGS: Number: 1 Heart Rate: 141.0 bpm H.B. /min Amniotic Fluid Volume: Subjectively normal Placental Location: POSTERIOR with lower margin 3.9 cm from os. Cervix Length: 4.7 cm; closed. ANATOMY: Normal Structures -cerebellum, choroid plexus, cisterna magna, lateral cerebral ventricles, orbits, midline falx, hard palate, four-chamber heart, RVOT, LVOT, stomach, kidneys, bladder, umbilical cord insertion into abdomen, three-vessel cord, cervical spine, thoracic spine, lumbar spine, sacral spine, right upper extremity, left upper extremity, right lower extremity, left lower extremity. SUBOPTIMALLY SEEN: None ABNORMALITIES: None BIOMETRY: BPD: 4.8 cm 20 weeks 4 days HC: 18.2 cm 20 weeks 4 days AC: 15.5 cm 20 weeks 5 days FL: 3.6 cm 21 weeks 2 days EFW:383.2 grams; 89% FL/AC: 23.0 FL/BPD: 73.5 HC/AC: 1.2 GESTATIONAL AGE: Age by EDC: 20 weeks 0 days STEFAN by EDC: 04/05/2022 Age by current US: 20 weeks 6 days STEFAN by current US: 03/30/2022 IMPRESSION: 1. Single live intrauterine with growth detailed above. Electronically authenticated by: KETTY STEPHENSON Date: 2021-11-16 09:37 Normal [facility] GTT 3 HR PREGon 11-15-2021 Glucose [Mass/Vol] 106 mg/dL Normal 74-106 [facility] Comment on above: Performed By: #### H CVPCRR #### [facility] [address] [place] [address] [address] Jannie Goodman Glucose [Mass/Vol] 188 mg/dL Normal [facility] Comment on above: Performed By: #### H CVPCRR #### [facility] [address] [place] [address] [address] Jannie Goodman Glucose [Mass/Vol] 161 mg/dL Normal [facility] Comment on above: Performed By: #### H CVPCRR #### [facility] [address] [place] [address] [address] Jannie Goodman Glucose [Mass/Vol] 127 mg/dL Normal [facility] Comment on above: Performed By: #### H CVPCRR #### [facility] [address] [place] [address] [address] Jannie Goodman AFP MATERNAL FOR SPINA BIFID Aon 11-06-2021 AFP MoM 0.96 Normal [facility] Comment on above: Performed By: #### A FPMAT ####[facility] [address] [place] [id number] Goodman AFP Value 34.7 ng/mL Normal [facility] Comment on above: Performed By: #### A FPMAT ####[facility] [address] [place] [id number] Goodman AFP, Serum for Spina Bifida Report Normal [facility] Comment on above: Performed By: #### A FPMAT ####[facility] [address] [place] [id number] Goodman Comment Comment Normal [facility] Comment on above: Result Comment: Raffaele Jones, Ph.D., [facility] Director . References: Available Upon Request. . Multiples Of Median Cutoffs For AFP Elevations Predomo 2.5 Black 2.8 IDD 2.0 Twins 4.5 Abbreviation Definitions IDD - Insulin Dep Diabetes OSBR - Open Spina Bifida Risk . For further inquiries contact [employer] [facility] at [phone]. Performed By: #### A FPMAT ####[facility] [address] [place] [address]DrKristopher Goodman Gest Age Collection Date 18.3 weeks Normal [facility] Comment on above: Performed By: #### A FPMAT ####[facility] [address] [place] [id number] Goodman Gestat, Age Based on STEFAN Normal [facility] Comment on above: Result Comment: 03/18 Recalculations are not recommended when gestational dating by LMP and ultrasound are within 10 days. Performed By: #### A FPMAT ####[facility] [address] [place] [id number] Goodman Insulin Dep Diabetes No Normal [facility] Comment on above: Performed By: #### A FPMAT ####[facility] [address] [place] [id number]. Jannie Goodman Interpretation Comment Normal [facility] Comment on above: Result Comment: Inte rpretation: Screen Negative . This result is screen negative for OSB. The AFP MoM calculated is based on the gestational age provided. MS-AFP can identify up to 80% of open neural tube defects. Closed neural tube defects and some open defects may not be detected by this test. This test does not screen for Down Syndrome or Trisomy 18. If screening for Down Syndrome or Trisomy 18 is desired, contact [employer] [facility] to discuss available options. The [employer] recommends amniocentesis be offered to women age 35 and older. Performed By: #### A FPMAT ####[facility] [address] [place] [address]Dr. Jannie Goodman [age] Normal [facility] Comment on above: Performed By: #### A FPMAT ####[facility] [address] [place] [address]Dr. Jannie Goodman Multiple Gestation No Normal [facility] Comment on above: Performed By: #### A FPMAT ####[facility] [address] [place] [address]Dr. Jannie Goodman OSBR [place] 1 [place] [id number] Normal [facility] Comment on above: Performed By: #### A FPMAT ####[facility] [address] [place] [address]Dr. Jannie Goodman PDF . Normal [facility] Comment on above: Performed By: #### A FPMAT ####[facility] [address] [place] [address]Dr. Jannie Goodman Race Normal [facility] Comment on above: Performed By: #### A FPMAT ####[facility] [address] [place] [address]Dr. Jannie Goodman Test Results: Negative Normal [facility] Comment on above: Performed By: #### A FPMAT ####[facility] [address] [place] [address]Dr. Jannie Goodman GLUCOSE - 1HRon 10-18-2021 Glucose [Mass/Vol] 164 mg/dL Critically high 74-106 [facility] Comment on above: Performed By: #### P LT #### [facility] [address] [place] [address] [address] Jannie Goodman PHIL BOX TEST PT SEND OUTo n 09-26-2021 SENT TO REF LAB 09/26/2021 Normal [facility] Comment on above: Performed By: #### P LT #### [facility] [address] [place] [address] [address] Jannie Goodman RUBELLA AB IGGon 09-16-2021 Rubella Antibodies, IgG 1.08 index Normal Immune >0.99 [facility] Comment on above: Result Comment: Non- immune <0.90 Equivocal 0.90 - 0.99 Immune >0.99 Performed By: #### P LT #### [facility] [address] [place] [address] Dr. Jannie Goodman HEP B SURFACE ANTIGEN SCREEN on 09-15-2021 HBsAg Screen Negative Normal Negative [facility] Comment on above: Performed By: #### H BSANS ####[facility] [address] [place] [address]Dr. Jannie Goodman HEPATITIS C VIRUS AB W/ REFL EX QUANTon 09-15-2021 HCV AB <0.1 Normal 0.0-0.9 [facility] Comment on above: Performed By: #### H CVPCRR #### [facility] [address] [place] [address] Dr. Jannie Goodman Interpretation: Comment Normal [facility] Comment on above: Result Comment: Nega tive Not infected with HCV, unless recent infection is suspected or other evidence exists to indicate HCV infection. Performed By: #### H CVPCRR #### [facility] [address] [place] [address] Dr. Jannie Goodman HIV 1 AND 2 WITH REFLEXon HIV Screen 4th Generation wRfx Non-Reactive Normal Non Reactive [facility] Comment on above: Result Comment: HIV Negative HIV-1/HIV-2 antibodies and HIV-1 p24 antigen were NOT detected. There is no laboratory evidence of HIV infection. Performed By: #### H IV12 ####[facility] [address] [place], [place] [address]YgDr. Jannie Goodman RPR QUANTon 09-15-2021 Rapid Plasma Reagin, Quant Non-Reactive Normal NonRea<1:1 [facility] Comment on above: Result Comment: Anat castaneda Note: This test does not meet current guidelines for screening and diagnosis of syphilis. This test is intended for following treatment response in patients being treated for syphilis infection. To screen for syphilis infection, a reflex cascade that includes both RPR and a treponema-specific assay should be utilized, such as Treponema pallidum (Syphilis) Screening [place] (133460) or Rapid Plasma Reagin (RPR) Test With Reflex to Quantitative RPR and Confirmatory Treponema pallidum Antibodies (535808). Performed By: #### R PRQ #### [facility] [address] [place] [address] Dr. Jannie Goodman CBC AUTO DIFFon 09-14-2021 BASO # 0.0 103/ul Normal 0.0-0.1 [facility] Comment on above: Performed By: #### P LT #### [facility] [address] [place] [address] Dr. Jannie Goodman Basophils/100 WBC (Bld) 0.2 % Normal 0.2-2.0 [facility] Comment on above: Performed By: #### P LT #### [facility] [address] [place] [address] Dr. Jannie Goodman EO # 0.1 103/ul Normal 0.0-0.7 [facility] Comment on above: Performed By: #### P LT #### [facility] [address] [place] [address] Dr. Jannie Goodman Eosinophils/100 WBC (Bld) 0.7 % Critically low 0.9-7.0 [facility] Comment on above: Performed By: #### P LT #### [facility] [address] [place] [address] Dr. Jannie Goodman Erythrocyte distribution width (RBC) [Ratio] 13.3 % Normal 11.0-15.0 [facility] Comment on above: Performed By: #### P LT #### [facility] [address] [place] [address] [address] Jannie Goodman Hematocrit (Bld) [Volume fraction] 34.2 % Critically low 36.0-48.0 [facility] Comment on above: Performed By: #### P LT #### [facility] [address] [place] [address] Dr. Jannie Goodman Hemoglobin (Bld) [Mass/Vol] 11.3 g/dL Critically low 12.0-16.0 [facility] Comment on above: Performed By: #### P LT #### [facility] [address] [place] [address] Dr. Jannie Goodman IG # 0.03 10e3/ul Normal 0.00-0.03 [facility] Comment on above: Performed By: #### P LT #### [facility] [address] [place] [address] Dr. Jannie Goodman IG % 0.4 % Normal 0.0-0.5 [facility] Comment on above: Performed By: #### P LT #### [facility] [address] [place] [address] Dr. Jannie Goodman LYMPH # 2.3 103/ul Normal 1.2-3.8 [facility] Comment on above: Performed By: #### P LT #### [facility] [address] [place] [address] Dr. Jannie Goodman Lymphocytes/100 WBC (Bld) 27.9 % Normal 20.5-60.0 [facility] Comment on above: Performed By: #### P LT #### [facility] [address] [place] [address] Dr. Jannie Goodman MANUAL DIFF REQ NO Normal [facility] Comment on above: Performed By: #### P LT #### [facility] [address] [place] [address] Dr. Jannie Goodman MCH (RBC) [Entitic mass] 28.0 pg Normal 26.7-34.0 [facility] Comment on above: Performed By: #### P LT #### [facility] [address] [place] [address] [address] Jannie Goodman MCHC (RBC) [Mass/Vol] 33.0 g/dL Normal 29.9-35.2 [facility] Comment on above: Performed By: #### P LT #### [facility] [address] [place] [address] [address] Jannie Goodman MCV (RBC) [Entitic vol] 84.9 fL Normal 81.0-99.0 [facility] Comment on above: Performed By: #### P LT #### [facility] [address] [place] [address] [address] Jannie Goodman MONO # 0.5 103/ul Normal 0.3-0.8 [facility] Comment on above: Performed By: #### P LT #### [facility] [address] [place] [address] Dr. Jannie Goodman Monocytes/100 WBC (Bld) 6.4 % Normal 1.7-12.0 [facility] Comment on above: Performed By: #### P LT #### [facility] [address] [place] [address] [address] Jannie Goodman NEUT # 5.2 103/ul Normal 1.4-6.5 [facility] Comment on above: Performed By: #### P LT #### [facility] [address] [place] [address] Dr. Jannie Goodman Neutrophils/100 WBC (Bld) 64.4 % Normal 43.0-75.0 [facility] Comment on above: Performed By: #### P LT #### [facility] [address] [place] [address] [address] Jannie Goodman Platelet mean volume (Bld) [Entitic vol] 9.1 fL Critically low 9.5-13.5 [facility] Comment on above: Performed By: #### P LT #### [facility] [address] [place] [address] [address] Jannie Goodman PLT 199 103/ul Normal 150-450 [facility] Comment on above: Performed By: #### P LT #### [facility] [address] [place] [address] Dr. Jannie Goodman RBC 4.03 106/ul Critically low 4.20-5.40 [facility] Comment on above: Performed By: #### P LT #### [facility] [address] [address] [address] Jannie Goodman WBC 8.1 103/ul Normal 4.0-11.0 [facility] Comment on above: Performed By: #### P LT #### [facility] [address] [address] [address] Jannie Goodman CULTURE URINEon 09-14-2021 CULTURE URINE Culture Observations: MODERATE GROWTH OF MIXED GENITAL CHIKIS. NO POTENTIAL PATHOGENS SEEN. Normal [facility] Comment on above: Performed By: #### U RCX #### [facility] [address] [address] [address] Jannie Goodman GLYCOHEMOGLOBIN A1Con 2021 ADA RECOMMENDATION ADA THERAPEUTIC TARGET 6.0 - 7.0 ACTION SUGGESTED > 7.0 Normal [facility] Comment on above: Performed By: #### P LT #### [facility] [address] [address] [address] Jannie Goodman Glucose [Mass/Vol] 117 mg/dL Normal [facility] Comment on above: Performed By: #### P LT #### [facility] [address] [address] [address] Jannie Goodman HbA1c (Bld) [Mass fraction] 5.7 % Normal <=6.0 [facility] Comment on above: Performed By: #### P LT #### [facility] [address] [address] [address] Jannie Goodman TYPE AND SCREENon 09-14-2021 TYPE AND SCREEN Negative Normal [facility] Comment on above: Performed By: #### T NS ####[facility] [id number] [address]Dr. Jannie Goodman US PREG TVon 08-26-2021 US PREG TV EXAMINATION: US PREG TV HISTORY: Irregular periods COMPARISON: No relevant comparison available. FINDINGS: GESTATIONAL SAC: Present and normal appearing. POLE: Present and normal appearing. YOLK SAC: Present. CARDIAC: Present. UTERUS: Small subchorionic hematoma, 14 x 12 x 6 mm. OVARIES: Right: Normal. Left: Not seen. CERVIX: 4.5 cm in length and closed. CUL-DE-SAC: Normal. OTHER: None. AGE BY LMP: 9 weeks, 1 day STEFAN BY LMP: 03/30/2022 AGE BY US CRL: 8 weeks, 2 days STEFAN BY US CRL: 04/05/2022 IMPRESSION: 1. Single live intrauterine . 2. Small subchorionic hematoma. Electronically authenticated by: KETTY STEPHENSON Date: 2021-08-26 09:42 Normal [facility] Vital Signs Date Time Vital Sign Value Performing Clinician Facility 03-20-2024 15:25-0400 Body height 167.6 cm [facility] 03-20-2024 15:25-0400 Body mass index (BMI) [Ratio] 36.96 kg/m2 [facility] 03-20-2024 15:25-0400 Body temperature 98.4 [degF] [facility] 03-20-2024 15:25-0400 Body weight 103.87 kg [facility] [facility] 03-20-2024 15:25-0400 Diastolic blood pressure 86 mm[Hg] [facility] [facility] 03-20-2024 15:25-0400 Heart rate 80 /min [employer] [facility] 03-20-2024 15:25-0400 Respiratory rate 18 /min [employer] [facility] 03-20-2024 15:25-0400 SaO2% (BldA) [Mass fraction] 99 % [employer] Work Phone: [facility] 03-20-2024 15:25-0400 Systolic blood pressure 130 mm[Hg] Nghia Melgoza DO Work Phone: [facility] 08-11-2022 14:25-0500 Body height 166.37 cm Rekha Ramos Other [facility] Other 08-11-2022 14:25-0500 Body mass index (BMI) [Ratio] 39.95 kg/m2 Rekha Carcamoault Other [facility] Other 08-11-2022 14:25-0500 Body temperature 98.9 [degF] Rekha Carcamoault Other [facility] Other 08-11-2022 14:25-0500 Body weight 110.59 kg Rekha Richard Other [facility] Other 08-11-2022 14:25-0500 Diastolic blood pressure 88 mm[Hg] Rekha Carcamoault Other [facility] Other 08-11-2022 14:25-0500 Respiratory rate 16 /min Rekha Richard Other [facility] Other 08-11-2022 14:25-0500 SaO2% (BldA) [Mass fraction] 99 % Rekha Carcamoault Other [facility] Other 08-11-2022 14:25-0500 Systolic blood pressure 132 mm[Hg] Rekha Richard Other [facility] Other 11-06-2021 02:06-0400 Body weight 106.[address] MINA HERNANDEZ [facility] Comment on above: Performed By: #### AFPMAT ####[facility] [id number] [place], [place] [address]ZzKristopher Goodman Encounters Encounter Date Encounter Type Care Provider Facility Start: 07-08-2024 End: 07-08-2024 Bamboo flowsheet Mina Mary DO Work Phone: [facility] Start: 07-08-2024 End: 07-08-2024 Bamboo flowsheet Mina Mary DO Work Phone: [facility] Start: 05-07-2024 End: 05-07-2024 [facility] Comment on above: Anxiety Start: 03-20-2024 End: 03-20-2024 ambulatory [facility] Start: 03-20-2024 Encounter for genera l adult medical examination without abnormal findings [facility] Start: 03-20-2024 End: 03-20-2024 Patient encounter status [place] Robi Fowler DO Work Phone: [employer] [facility] Work Phone: Start: 03-20-2024 End: 03-20-2024 Periodic preventive med est patient 18-39 yrs Nghia Gloriajabier DO Work Phone: [facility] Comment on above: Well adult health ch sandi (Primary Dx); Class 2 obesity due to excess calories without serious comorbidity with body mass index (BMI) of 38.0 to 38.9 in adult; Bipolar depression ([facility]) Start: 03-20-2024 End: 03-20-2024 ambulatory [facility] Start: 03-20-2024 Encounter for genera l adult medical examination without abnormal findings [facility] Start: 01-31-2024 End: 01-31-2024 ambulatory [facility] Start: 01-01-2024 End: 01-01-2024 ambulatory NGHIA Rosenbaum [facility] Start: 07-04-2023 End: 07-04-2023 ambulatory ZURI Gramajo KHANH Not Available Start: 07-02-2023 End: 07-02-2023 ambulatory MINA HERNANDEZ Not Available Start: 05-07-2023 End: 05-07-2023 ambulatory ZURI Gramajo CASSIDY Not Available Start: 08-11-2022 End: 08-11-2022 ambulatory Rekha Ramos Other [employer] Other Start: 08-11-2022 Office outpatient vi sit 15 minutes Rekha Ramos [facility] Start: 06-28-2022 End: 06-28-[address] MINA HERNANDEZ Facility:[facility] Start: 04-07-2022 End: 04-07-[address] MINA HERNANDEZ Facility:[facility] Start: 04-05-2022 End: 04-05-[address] MINA HERNANDEZ Facility:[facility] Start: 03-30-2022 End: 04-04-2022 Evaluation and management of inpatient DR MINA HERNANDEZ Facility:[facility] Start: 03-29-2022 End: 03-29-[address] ZEKE CASTRO Facility:[facility] Start: 03-22-2022 End: 03-22-[address] MINA HERNANDEZ Facility:[facility] Start: 03-15-2022 End: 03-15-[address] MINA HERNANDEZ Facility:[facility] Start: 03-13-2022 End: 03-13-[address] MINA HERNANDEZ Facility:[facility] Start: 03-08-2022 End: 03-08-[address] NONE LISTED REQUEST Facility:[facility] Start: 03-01-2022 End: 03-01-[address] NONE LISTED REQUEST Facility:[facility] Start: 02-22-2022 End: 02-22-[address] NONE LISTED REQUEST Facility:[facility] Start: 02-15-2022 End: 02-15-[address] NONE LISTED REQUEST Facility:[facility] Start: 02-09-2022 End: 02-09-[address] MINA HERNANDEZ Facility:[facility] Start: 02-08-2022 End: 02-08-[address] NIETO LISTED REQUEST Facility:[facility] Start: 01-24-2022 End: 01-25-[address] MINA HERNANDEZ Facility:[facility] Start: 01-11-2022 End: 01-12-[address] MINA HERNANDEZ Facility:[facility] Start: 12-28-2021 End: 12-29-[address] MINA HERNANDEZ Facility:[facility] Start: 11-22-2021 End: 11-23-[address] MINA HERNANDEZ Facility:[facility] Start: 11-16-2021 End: 11-17-[address] MINA HERNANDEZ Facility:[facility] Start: 11-15-2021 End: 11-16-[address] MINA HERNANDEZ Facility:[facility] Start: 11-04-2021 End: 11-05-[address] MINA HERNANDEZ Facility:[facility] Start: 10-18-2021 End: 10-19-[address] MINA HERNANDEZ Facility:[facility] Start: 09-26-2021 End: 09-27-[address] MINA HERNANDEZ Facility:[facility] Start: 09-14-2021 End: 09-15-[address] MINA HERNANDEZ Facility:[facility] Start: 08-26-2021 End: 08-27-[address] MINA HERNANDEZ Facility:[facility] Procedures Date Procedure Procedure Detail Performing Clinician Start: 04-16-2023 Adult depression scr eening assessment Nghia Gloriajabier DO Work Phone: Start: 04-01-2022 Extraction of Produc ts of Conception, Low Cervical, Open Approach DR MINA HERNANDEZ Start: 03-31-2022 Drainage of Amniotic Fluid, Therapeutic from Products of Conception, Via Natural or Artificial Opening DR MINA HERNANDEZ Start: 03-30-2022 Introduction of Horm one into Female Reproductive, Via Natural or Artificial Opening DR MINA HERNANDEZ Plan of Treatment Date Care Activity Detail Author Start: 03-20-2025 Adult BMI Screening Adult BMI Screen ing [facility] Start: 03-20-2025 Tobacco Screening Tobacco Screening [facility] Start: 09-22-2024 End: 09-22-2024 Patient encounter procedure 09/22/2024 4:00 PM EDT Office Visit [facility] [address] [place] [address] Nghia Melgoza, [address], [place] [address] [facility] Start: 07-08-2024 End: 07-08-2024 Patient encounter procedure 07/08/2024 11:00 AM EST Office Visit [facility] [address] [id number] Mina Hernandez DO [address] [place] [address] Arrived [facility] Comment on above: Arrived Start: 04-16-2024 Adult BMI Follow Up Plan Adult BMI Follow Up Plan [facility] Start: 04-16-2024 Depression Screening Depression Scre ening [facility] Start: 02-17-2024 Influenza vaccination Influenza Vacc ine [facility] Start: 2018 Screening for malign ant neoplasm of cervix Pap Smear [facility] Start: 2016 DTaP,Tdap and Td Vaccines (1 - Tdap) DTaP,Tdap and Td Vaccines (1 - Tdap) [facility] End: 03-20-2025 Comprehensive metabolic 2000 panel - Serum or Plasma Comprehensive metabolic panel Lab Routine Well adult health check 1 Occurrences starting 03/20/2024 until 03/20/2025 [facility] Work Phone: Comment on above: 1 Occurrences starti ng 03/20/2024 until 03/20/2025 End: 03-20-2025 Lipid panel Lipid panel Lab Routine Well adult health check 1 Occurrences starting 03/20/2024 until 03/20/2025 [facility] Comment on above: 1 Occurrences starti ng 03/20/2024 until 03/20/2025 End: 03-20-2025 Thyrotropin [Units/volume] in Serum or Plasma TSH Lab Routine Class 2 obesity due to excess calories without serious comorbidity with body mass index (BMI) of 38.0 to 38.9 in adult 1 Occurrences starting 03/20/2024 until 03/20/2025 [facility] Comment on above: 1 Occurrences starti ng 03/20/2024 until 03/20/2025 Payers Date Payer Category Payer Managed Care Other (unspecified) [employer] [id number] 2022 Private Health Insurance [id number] 2022 Unknown [id number] 1997 Unknown [id number] 2.16.840.1.503760.3.579. 2.593 1997 Unknown [id number] 2.16.840.1.361935.3.579. 2.593 1997 Unknown [id number] 2.16.840.1.880702.3.579. 2.593 1997 Unknown [id number] 2.16.840.1.156445.3.579. 2.593 1997 Unknown [id number] 2.16.840.1.829707.3.579. 2.593 1997 Unknown [id number] 2.16.840.1.681009.3.579. 2.593 1997 Unknown [id number] 2.16.840.1.821000.3.579. 2.593 1997 Unknown [id number] 2.16.840.1.001916.3.579. 2.593 1997 Unknown [id number] 2.16.840.1.072208.3.579. 2.593 1997 Unknown [id number] 2.16.840.1.988206.3.579. 2.593 1997 Unknown [id number] 2.16.840.1.690921.3.579. 2.593 1997 Unknown [id number] 2.16.840.1.888362.3.579. 2.593 1997 Unknown [id number] 2.16.840.1.614181.3.579. 2.593 1997 Unknown [id number] 2.16.840.1.775022.3.579. 2.593 1997 Unknown [id number] 2.16.840.1.964797.3.579. 2.593 1997 Unknown [id number] 2.16.840.1.192881.3.579. 2.593 1997 Unknown [id number] 2.16.840.1.388098.3.579. 2.593 1997 Unknown [id number] 2.16.840.1.739608.3.579. 2.593 1997 Unknown [id number] 2.16.840.1.974131.3.579. 2.593 1997 Unknown [id number] 2.16.840.1.904250.3.579. 2.593 1997 Unknown [id number] 2.16.840.1.281537.3.579. 2.593 1997 Unknown [id number] 2.16.840.1.226366.3.579. 2.593 1997 Unknown [id number] 2.16.840.1.513823.3.579. 2.593 1997 Unknown [id number] 2.16.840.1.308252.3.579. 2.593 1997 Unknown [id number] 2.16.840.1.737422.3.579. 2.593 1997 Unknown [id number] 2.16.840.1.426326.3.579. 2.1259 1997 Unknown [id number] 2.16.840.1.187326.3.579. 2.1259 1997 Unknown [id number] 2.16.840.1.972200.3.579. 2.1259 1997 Unknown [id number] 2.16.840.1.634718.3.579. 2.1286 1997 Unknown [id number] 2.16.840.1.243869.3.579. 2.1286 1997 Unknown [id number] 2.16.840.1.599635.3.579. 2.1286 1997 Unknown [id number] 2.16.840.1.898942.3.579. 2.1286 1959 Self-pay 1959 Unknown [id number] 1959 Unknown [id number] Unknown [id number] 2.16.840.1.484811.3.579. 2.593 Social History Date Type Detail Facility Unknown if ever smoked [facility] Other Start: 12-05-2022 End: 04-16-2023 Sex Assigned At [facility] Other Start: 12-05-2022 End: 04-16-2023 Tobacco smoking status NHIS Never smoked tobacco [facility] Start: 12-05-2022 End: 04-16-2023 Tobacco use and exposure Smokeless tobacco non-user [facility] Start: 03-20-2024 Alcoholic beverage intake Current drinker of alcohol (finding) [facility] Start: 12-05-2022 End: 04-16-2023 History of Social function [facility] Has the [employer], [employer], or [employer] threatened to shut off services in your home in past 12Mo No [facility] Are you now , , , , never or living with a partner? [facility] How often to you hav e a drink containing alcohol? Monthly or less [facility] How many standard drinks containing alcohol do you have on a typical day? 1 or 2 [facility] How often do you hav e 6 or more drinks on 1 occasion? Never [facility] How hard is it for y ou to pay for the very basics like food, housing, medical care, and heating Not hard at all [facility] Do you feel stress - tense, restless, nervous, or anxious, or unable to sleep at night because your mind is troubled all the time - these days [OSQ] Only a little [facility] Start: 04-16-[address] [facility] Start: 1997 Sex assigned at Not on file [facility] Start: 01-21-2015 Sex Female (finding) [facility] Start: 07-02-2023 Alcoholic beverage intake Lifetime non-drinker (finding) [facility] Start: 1997 Sex assigned at Female [facility] Start: 01-24-2023 Gender identity Identifies as female gender (finding) [facility] Start: 01-24-2023 Sexual orientation Heterosexual (finding) [facility] History of Present illness Narrative 03-20-2024 Nghia Melgoza, - 03/20/2024 3:15 PM EDT Note Date & Type Note Facility 03-20-2024 History of Present illness Narrative Subjective Patient ID: Maria Antonia Baldwin is a 28 y.o. female. Maria Antonia presents for her annual wellness exam. She has no new problems to report. She is using escitalopram for bipolar depression. She is tolerating it well. She doesn't have any side effects. She has used her FMLA once in a while. The following portions of the patient's history were reviewed and updated as appropriate: allergies, current medications, past family history, past medical history, past social history, past surgical history, problem list, and medication reconciliation was completed including current medication and post discharge medication. Review of Systems Constitutional: Negative. HENT: Negative. Eyes: Negative. Respiratory: Negative. Cardiovascular: Negative. Gastrointestinal: Negative. Endocrine: Negative. Genitourinary: Negative. Musculoskeletal: Negative. Skin: Negative. Allergic/Immunologic: Negative. Neurological: Negative. Hematological: Negative. Psychiatric/Behavioral: Positive for dysphoric mood. Objective Physical Exam Vitals reviewed. Constitutional: General: She is not in acute distress. Appearance: She is obese. She is not ill-appearing. HENT: Head: Normocephalic. Right Ear: Tympanic membrane, ear canal and external ear normal. Left Ear: Tympanic membrane, ear canal and external ear normal. Nose: Nose normal. No congestion. Mouth/Throat: Mouth: Mucous membranes are moist. Pharynx: No oropharyngeal exudate. Eyes: General: No scleral icterus. Extraocular Movements: Extraocular movements intact. Conjunctiva/sclera: Conjunctivae normal. Cardiovascular: Rate and Rhythm: Normal rate and regular rhythm. Pulses: Normal pulses. Heart sounds: Normal heart sounds. No murmur heard. Pulmonary: Effort: Pulmonary effort is normal. No respiratory distress. Breath sounds: No wheezing, rhonchi or rales. Abdominal: General: Bowel sounds are normal. There is no distension. Palpations: Abdomen is soft. There is no mass. Tenderness: There is no abdominal tenderness. There is no guarding or rebound. Hernia: No hernia is present. Musculoskeletal: General: Normal range of motion. Cervical back: Neck supple. Right lower leg: No edema. Left lower leg: No edema. Lymphadenopathy: Cervical: No cervical adenopathy. Skin: General: Skin is warm. Neurological: General: No focal deficit present. Mental Status: She is alert and oriented to person, place, and time. Cranial Nerves: Cranial nerves 2-12 are intact. Gait: Gait is intact. Psychiatric: Attention and Perception: Attention and perception normal. Mood and Affect: Mood and affect normal. Speech: Speech normal. Behavior: Behavior normal. Behavior is cooperative. Thought Content: Thought content normal. Cognition and Memory: Cognition and memory normal. Judgment: Judgment normal. Assessment/Plan Maria Antonia was seen today for annual exam. Diagnoses and all orders for this visit: Well adult health check - Comprehensive metabolic panel; Future - Lipid panel; Future Health maintenance discussed. Check CMP and lipids Class 2 obesity due to excess calories without serious comorbidity with body mass index (BMI) of 38.0 to 38.9 in adult - TSH; Future She is obese. She would benefit from weight loss. Check TSH. Diet and exercise discussed. Bipolar depression ([facility]) Stable. Continue current regimen. documented in this encounter [facility] Evaluation note 08-11-2022 Note Date & Type Note Facility 08-11-2022 Evaluation note Encounter Date Diagnosis Assessment Notes Jul, Contact with and (suspected) exposure to covid-19 (ICD-10 - Z20.822) Jul, Bilateral acute otitis media (ICD-10 - H66.93) Symptoms appear viral today. Bacteria infections take several days to weeks of symptoms to develop. Use saline nasal spray before prescription one and you have better results. Recommend OTC medications such as Mucinex DM, Delsym, Cepocal Lozenges Continue tylenol/ibuprof en for general discomfort. Encourage fluids. Symptoms should improve within the next 10-14 days. If no improvement of symptoms in 14 days call primary care provider to discuss antibiotic therapy Jul, Sore throat (ICD-10 - J02.9) [facility] Other Clinical Note 03-30-2022 Note Date & Type Note Facility 03-30-2022 Note OPERATIVE NOTE OPERATION DATE: 04/01/2022 PROCEDURE: Primary low transverse section. PREOPERATIVE DIAGNOSIS: 1. Intrauterine at 39 weeks. 2. Failure to descend. 3. Failure to dilate. POSTOPERATIVE DIAGNOSIS: 1. Intrauterine at 39 weeks. 2. Failure to descend. 3. Failure to dilate. ANESTHESIA: Epidural with Duramorph. SURGEON: Mina Hernandez D.O. ROTARY PLANER SET UP OPERATOR: ROSSANA Lewis URINE OUTPUT: Yellow and clear. BLOOD LOSS: 800 mL. FINDINGS: Viable male. Apgars and weight unknown at this time. SPECIMEN: Placenta. PROCEDURE: Patient was taken back to the Operating Room where she was given a epidural anesthesia with Duramorph without difficulty. She was prepped and draped in the normal sterile fashion. A Pfannenstiel skin incision was then made 2 cm above the symphysis pubis and carried down to underlying rectus fascia using a Bovie. The fascia was incised in the midline and extended laterally using Saenz scissors. Two Rika clamps were placed on the superior aspect of the fascia and dissected off the underlying rectus muscles. The same was performed on the inferior aspect as well. The muscles were then in the midline. Peritoneum was identified and entered bluntly. The peritoneum was then extended superiorly and inferiorly with good visualization of the bladder. The bladder blade was inserted. A low transverse incision was made on the patient's uterus and extended laterally digitally. The infant was then delivered atraumatically after the bladder blade was removed in the cephalic position. The cord was clamped and cut. Cord blood was obtained. The infant was handed off to awaiting team. The patient's placenta was spontaneously delivered. The uterus was then exteriorized. The uterus was cleared of all clots and debris. The bladder blade was reinserted. The patient's uterine incision was closed using #0 Vicryl in a running lock fashion. Excellent hemostasis was assured. The uterus was then returned to the patient's abdomen. The patient's abdomen was copiously irrigated using warm saline. Peritoneal gutters were cleared of all clots and debris. Again excellent hemostasis was assured. The patient's peritoneum was closed using 3-0 Vicryl in a running fashion. The patient's fascia was closed using #0 Vicryl in a running fashion. The patient's skin was closed using 4-0 Vicryl subcuticularly. The patient tolerated the procedure well. Sponge, lap, and needle counts were correct x2. The patient was taken to the Recovery Room in stable condition. [facility] Discharge summary note 03-30-2022 Note Date & Type Note Facility 03-30-2022 Note DISCHARGE SUMMARY DISCHARGE DATE: 04/10/2022 PRIMARY DIAGNOSES: 1. Intrauterine at 39 weeks. 2. Failure to descend. 3. Failure to dilate. PROCEDURE: Primary low transverse section. HOSPITAL COURSE: As expected. Please see chart for full details. LABORATORY DATA: Please see chart. COMPLICATIONS: None. DISCHARGE CONDITION: Stable. CONSULTATION: Anesthesia. DISCHARGE INSTRUCTIONS: 1. Diet: Regular. 2. Medications: a. Percocet 5/325 one to two p.o. every 4-6 hours p.r.n. pain. b. Motrin 800 one p.o. every 8 hours p.r.n. pain. 3. Followup in one week. Restrictions: Pelvic rest for 6 weeks. No heavy lifting. May drive when pain free and no longer on narcotics. [facility] Evaluation note Note Date & Type Note Facility Evaluation note Diagnosis Well adult health check- Primary Unspecified general medical examination Class 2 obesity due to excess calories without serious comorbidity with body mass index (BMI) of 38.0 to 38.9 in adult Bipolar depression ([facility]) Bipolar I disorder, most recent episode (or current) depressed, unspecified documented in this encounter [facility] Evaluation note Note Date & Type Note Facility Evaluation note Diagnosis Anxiety Anxiety state, unspecified documented in this encounter [facility] History general Narrative - Reported Note Date & Type Note Facility History general Narrative - Reported Type Medical History Depression Surgical History tonsillectomy Surgical History wisdom teeth Surgical History Csection 2021 [facility] Other Instructions Note Date & Type Note Facility Instructions Not on filedocumented in this en counter [facility] Instructions Note Date & Type Note Facility Instructions Not on filedocumented in this en counter [facility] Summary Purpose Family History No Family History Records FoundNo Family History Records FoundNo Family History Records FoundNo Family History Records Found Advance Directives No Advanced Directives Records FoundNo Advanced Directives Records FoundNo Advanced Directives Records FoundNo Advanced Directives Records Found Additional Source Comments INFORMATION SOURCE (unrecogn ized section and content) DATE CREATED AUTHOR [facility]2022 [facility] DATE CREATED AUTHOR AUTHOR'S ORGANIZ ATION 07/05/2023 [facility] EPIC DATE CREATED AUTHOR AUTHOR'S ORGANIZ ATION 03/22/2024 [facility] DATE CREATED AUTHOR AUTHOR'S ORGANIZ ATION 03/22/2024 [facility] REASON FOR VISIT (unrecogniz ed section and content) Reason Comments Annual Exam Reason Comments Med Refill Care Teams (unrecognized sec tion and content) Diagnostic Tech Relationship Specialty Start Date End Date Nghia Melgoza DO [address] [facility], [place] [address] PCP - General Family Medicine 12/27/23 Diagnostic Tech Relationship Specialty Start Date End Date Nghia Melgoza DO [address] [place] [address] PCP - General Family Medicine 12/27/23 Diagnostic Tech Relationship Specialty Start Date End Date Isaac Perez MD [address], [place] [id number] PCP - General Family Medicine 11/20/22 FOR RECORDS PERTAINING TO PATIENTS WHO ARE OR HAVE BEEN ENROLLED IN A CHEMICAL DEPENDENCY/SUBSTANCEABUSE PROGRAM, SOME INFORMATION MAY BE OMITTED. This clinical summary was aggregated from multiple sources. Caution should be exercised in using it in the provision of clinical care. This summary normalizes information from multiple sources, and as a consequence, information in this document may materially change the coding, format and clinical context of patient data. In addition, data may be omitted in some cases. CLINICAL DECISIONS SHOULD BE BASED ON THE PRIMARY CLINICAL RECORDS. [employer] provides no warranty or guarantee of the accuracy or completeness of information in this document.
--- OUTSIDE RECORDS SUMMARY | 2024-07-09 09:45 | XMS_ITS | CCD ---
Author Organization [facility] Care Team Providers Care Tax Lawyer Name Role Phone MARY, DR ENRIQUEZ Admitting [...] KARASIK, DR ALANIS Admitting Unavailable KARASIK, DR LAANIS Attending Unavailable KARASIK, DR ALANIS Consulting Unavailable MARY, DR ENRIQUEZ Consulting Unavailable ZIEBER, DR KETTY Kumar Consulting Unavailable MARY, DR ENRIQUEZ Admitting Unavailable MARY, DR ENRIQUEZ Attending Unavailable MARY, DR ENRIQUEZ Consulting Unavailable REQUEST, DR NIETO LISTED Primary Care [...] Unavailable Furlong Nghia ROBLEDO Primary Care Provider [phone] Isaac Perez MD Primary Care Provider Medications Current Medications Medication Drug Class(es) Dates Sig (Normalized) Sig (Original) amoxicillin 875 mg oral tablet (2 sources) Penicillin-class Antibacterial Start: 08-11-2022 take 1 tablet by mouth every twelve hours Amoxicillin 875 MG 1 tablet Orally every 12 hrs for 10 days Jul, Active Start: 05-26-2022 take 1 capsule by [facility] every eight hours Amoxicillin 500 MG 1 [...] Agent lamoTRIgine 25 MG (Prior Auth: Rx Ref#:[id number]) Oral for 30 Not-Taking LaMICtal Active norethindrone [...] Onset: 01-01-2024 Episodic Other aftercare (1 source) halfway (current) use of aspirin; Translations: [INTERMEDIATE CURRENT USE OF ASPIRIN] Onset: 04-11-2022 Episodic Other aftercare (1 source) Other snf (current) drug therapy; Translations: [OTH INTERMEDIATE CURRENT DRUG THERAPY] Onset: 04-11-2022 Episodic Other [...] Interpretation Reference Range Facility COMPREHENSIVE METABOLIC PANE [facility] 03-20-2024 Albumin [Mass/Vol] 4.5 g/dL Normal 3.2-5.3 [facility] Comment on above: Performed By: #### C JAYDEN, 62184-2, 6-3 #### [facility] ([id number]) [address], [address] [place] [address] ALP [Catalytic activity/Vol] 64 U/L Normal 39-130 [facility] Comment on above: Performed By: #### Jeb CARPENTER, 45642-3, 6-3 #### [facility] ([id number]) [address], [address] [place] [address] ALT [Catalytic activity/Vol] 15 U/L Normal 0-31 [facility] Comment on above: Performed By: #### Jeb CARPENTER, 05451-6, 6-3 #### [facility] ([id number]) [address], [address] [place] [address] Anion gap [Moles/Vol] 11 mmol/L Normal 5-15 [facility] Comment on above: Performed By: #### Jeb CARPENTER, 43256-5, 3015-3 #### [facility] ([id number]) [address], [address] [place] [address] AST [Catalytic activity/Vol] 20 U/L Normal 0-41 [facility] Comment on above: Performed By: #### C JAYDEN, 58664-9, 6-3 #### [facility] ([id number]) [address], [address] [place] [address] Bilirubin [Mass/Vol] 0.3 mg/dL Normal 0.3-1.2 [facility] Comment on above: Performed By: #### C JAYDEN, 74677-4, 3015-3 #### [facility] ([id number]) [address], [address] [place] [address] Calcium [Mass/Vol] 9.6 mg/dL Normal 8.5-10.5 [facility] Comment on above: Performed By: #### Jeb CARPENTER, 94756-7, 3015-3 #### [facility] ([id number]) [address], [address] [place] [address] Chloride [Moles/Vol] 101 mmol/L Normal 98-109 [facility] Comment on above: Performed By: #### Jeb CARPENTER, 99576-3, 3015-3 #### [facility] ([id number]) [address], [address] [place] [address] CO2 [Moles/Vol] 24 mmol/L Normal 22-32 [facility] Comment on above: Performed By: #### Jeb CARPENTER, 86525-4, 6-3 #### [facility] ([id number]) [address] [place] [address] Creatinine [Mass/Vol] 0.95 mg/dL Normal 0.40-1.00 [facility] Comment on above: Result Comment: METH OD TRACEABLE TO IDMS STANDARD Performed By: #### Jeb CARPENTER, 44486-1, 3015-3 #### [facility] ([id number]) [address] [place] [address] GFR/1.73 sq M.predicted among non-blacks MDRD (S/P/Bld) [Vol rate/Area] 85 mL/min/{1.73_m2} Normal >59 [facility] Comment on above: Result Comment: Reported eGFR is based on the CKD-EPI 2020 equation that does not use a race coefficient. Performed By: #### Jeb CARPENTER, 02620-3, 3015-3 #### [facility] ([id number]) [address] [place] [address] Glucose [Mass/Vol] 81 mg/dL Normal 65-99 [facility] Comment on above: Performed By: #### Jeb CARPENTER, 39562-5, 3015-3 #### [facility] ([id number]) [address] [address] [place] [address] Potassium [Moles/Vol] 3.6 mmol/L Normal 3.5-5.0 [facility] Comment on above: Performed By: #### Jeb CARPENTER, 74836-7, 3015-3 #### [facility] ([id number]) [address] [address] [place] [address] Protein [Mass/Vol] 7.9 g/dL Normal 6.0-8.0 [facility] Comment on above: Performed By: #### Jeb CARPENTER, 69198-2, 3015-3 #### [facility] ([id number]) [address] [place] [address] Sodium [Moles/Vol] 136 mmol/L Normal 134-146 [facility] Comment on above: Performed By: #### Jeb CARPENTER, 81921-6, 3015-3 #### [facility] ([id number]) [address] [address] [place] [address] Urea nitrogen [Mass/Vol] 24 mg/dL High 5-23 [facility] Comment on above: Performed By: #### Jeb CARPENTER, 45490-1, 6-3 #### [facility] ([id number]) [address] [place] [address] Lipid 1996 panelon 4 Cholesterol [Mass/Vol] 208 mg/dL High 150-200 [facility] Comment on above: Performed By: #### Jeb CARPENTER, 83326-0, 3015- #### [facility] ([id number]) [address] [place] [address] Cholesterol in HDL [Mass/Vol] 43 mg/dL Normal >39 [facility] Comment on above: Result Comment: HDL <40 mg/dL - High Risk HDL > or = 40mg/dL- Desirable HDL >60 mg/dL - Negative Risk Performed By: #### Jeb CARPENTER, 56659-8, 3015-3 #### [facility] ([id number]) [address] [place] [address] Cholesterol in LDL [Mass/Vol] 125 mg/dL Normal <130 [facility] Comment on above: Result Comment: LDL <100 mg/dL - Desirable LDL >160 mg/dL - High Risk Performed By: #### Jeb CARPENTER, 09190-3, 3015-3 #### [facility] ([id number]) [address] [place] [address] Cholesterol in VLDL [Mass/Vol] 40 mg/dL High 0-30 [facility] Comment on above: Performed By: #### Jeb CARPENTER, 04283-7, 3016-3 #### [facility] ([id number]) [address] [place] [address] CHOLESTEROL:HDL 4.8 Normal 1.0-5.0 [facility] Comment on above: Performed By: #### Jeb CARPENTER, 58349-2, 3016-3 #### [facility] ([id number]) [address] [place] [address] Triglyceride [Mass/Vol] 201 mg/dL High 27-150 [facility] Comment on above: Performed By: #### Jeb CARPENTER, 71404-3, 3016-3 #### [facility] ([id number]) [address] [place] [address] TSH Qnon 03-20-2024 TSH 2.89 uIU/mL Normal 0.49-4.67 [facility] Comment on above: Performed By: #### Jeb CARPENTER, 22412-2, 6-3 #### [facility] ([id number]) [address] [place] [address] COVID/FLU/RSV RT-PCRon 08-11 SARS-CoV-2 (COVID-19) RNA NADIA+probe Ql (Unsp spec) Negative 10sec [facility] [employer] Other COVID/FLU/RSV RT-PCR Negative [facility] [employer] Other Quick Strepon 08-11-2022 S. pyogenes Org specific cx Ql (Throat) Negative 10sec [facility] [employer] Other Quick Strep 10sec [facility] [employer] Other PAP ACOG PANEL 2: 21 to 29on 07-03-2022 . . Normal [facility] Comment on above: Performed By: #### 4 [id number] ####[facility] [address] [place], [place] [address]QeKristopher Goodman Age Gdln ACOG Testing 21-29 Normal [facility] Comment on above: Performed By: #### 4 061508 ####[facility] [address] [place], [place] [address]DrKristopher Goodman DIAGNOSIS: Comment Normal [facility] Comment on above: Result Comment: NEGA TIVE FOR INTRAEPITHELIAL LESION OR MALIGNANCY. Performed By: #### 4 [id number] ####[facility] [address] [place], [place] [address]DrKristopher Goodman Methodology: Comment Normal [facility] Comment on above: Result Comment: This liquid based ThinPrep(R) pap test was screened with the use of an image guided system. Performed By: #### 4 [id number] ####[facility] [address] [place], [place] [address]DrKristopher Goodman Note: Comment Normal [facility] Comment on above: Result Comment: The Pap smear is a screening test designed to aid in the detection of premalignant and malignant conditions of the uterine cervix. It is not a diagnostic procedure and should not be used as the sole means of detecting cervical cancer. Both false-positive and false-negative reports do occur. . Performed By: #### 4 [id number] ####[facility] [address] [place], [place] [address]DrKristopher Goodman Performed by: Comment Normal [facility] Comment on above: Result Comment: Mily Ribeiro, Osteopathic Neurologist (ASCP) Performed By: #### 4 [id number] ####[facility] [address] [place], [place] [address]DrKristopher Goodman Reflex Criteria: Comment Normal [facility] Comment on above: Result Comment: The HPV DNA reflex criteria were not met with this specimen result therefore, no HPV testing was performed. . Performed By: #### 4 073461 ####[facility] [address] [place], [place] [address]DrKristopher Goodman Specimen adequacy: Comment Normal [facility] Comment on above: Result Comment: Sati sfactory for evaluation. Endocervical and/or squamous metaplastic cells (endocervical component) are present. Performed By: #### 4 [id number] ####[facility] [address] [address]Dr. Jannie Goodman CBC AUTO DIFFon 04-02-2022 BASO # 0.0 103/ul Normal 0.0-0.1 [facility] Comment on above: Performed By: #### P LT #### [facility] [address] [address] [address] Jannie Goodman Basophils/100 WBC (Bld) 0.2 % Normal 0.2-2.0 [facility] Comment on above: Performed By: #### P LT #### [facility] [address] [address] [address] Jannie Goodman EO # 0.1 103/ul Normal 0.0-0.7 [facility] Comment on above: Performed By: #### P LT #### [facility] [address] [address] [address] Jannie Goodman Eosinophils/100 WBC (Bld) 0.4 % Critically low 0.9-7.0 [facility] Comment on above: Performed By: #### P LT #### [facility] [address] [address] [address] Jannie Goodman Erythrocyte distribution width (RBC) [Ratio] 14.0 % Normal 11.0-15.0 [facility] Comment on above: Performed By: #### P LT #### [facility] [address] [address] [address] Jannie Goodman Hematocrit (Bld) [Volume fraction] 21.2 % Critically low 36.0-48.0 [facility] Comment on above: Performed By: #### P LT #### [facility] [address] [address] [address] Jannie Goodman Hemoglobin (Bld) [Mass/Vol] 6.9 g/dL Critically low 12.0-16.0 [facility] Comment on above: Performed By: #### P LT #### [facility] [address] [address] [address] Jannie Goodman IG # 0.05 10e3/ul Critically high 0.00-0.03 [facility] Comment on above: Performed By: #### P LT #### [facility] [address] [address] [address] Jannie Goodman IG % 0.4 % Normal 0.0-0.5 [facility] Comment on above: Performed By: #### P LT #### [facility] [address] [address] [address] Jannie Goodman LYMPH # 2.0 103/ul Normal 1.2-3.8 [facility] Comment on above: Performed By: #### P LT #### [facility] [address] [place] [address] Dr. Jannie Goodman Lymphocytes/100 WBC (Bld) 16.7 % Critically low 20.5-60.0 [facility] Comment on above: Performed By: #### P LT #### [facility] [address] [place] [address] Dr. Jannie Goodman MANUAL DIFF REQ NO Normal [facility] Comment on above: Performed By: #### P LT #### [facility] [address] [place] [address] Dr. Jannie Goodman MCH (RBC) [Entitic mass] 28.6 pg Normal 26.7-34.0 [facility] Comment on above: Performed By: #### P LT #### [facility] [address] [place] [address] Dr. Jannie Goodman MCHC (RBC) [Mass/Vol] 32.5 g/dL Normal 29.9-35.2 [facility] Comment on above: Performed By: #### P LT #### [facility] [address] [place] [address] Dr. Jannie Goodman MCV (RBC) [Entitic vol] 88.0 fL Normal 81.0-99.0 [facility] Comment on above: Performed By: #### P LT #### [facility] [address] [place] [address] Dr. Jannie Goodman MONO # 0.8 103/ul Normal 0.3-0.8 [facility] Comment on above: Performed By: #### P LT #### [facility] [address] [address] [address] Jannie Goodman Monocytes/100 WBC (Bld) 6.5 % Normal 1.7-12.0 [facility] Comment on above: Performed By: #### P LT #### [facility] [address] [address] [address] Jannie Goodman NEUT # 9.2 103/ul Critically high 1.4-6.5 [facility] Comment on above: Performed By: #### P LT #### [facility] [address] [address] [address] Jannie Goodman Neutrophils/100 WBC (Bld) 75.8 % Critically high 43.0-75.0 [facility] Comment on above: Performed By: #### P LT #### [facility] [address] [place] [address] Dr. Jannie Goodman Platelet mean volume (Bld) [Entitic vol] 10.1 fL Normal 9.5-13.5 [facility] Comment on above: Performed By: #### P LT #### [facility] [address] [address] [address] Jannie Goodman PLT 122 103/ul Critically low 150-450 [facility] Comment on above: Performed By: #### P LT #### [facility] [address] [address] [address] Jannie Goodman RBC 2.41 106/ul Critically low 4.20-5.40 [facility] Comment on above: Performed By: #### P LT #### [facility] [address] [address] [address] Jannie Goodman WBC 12.1 103/ul Critically high 4.0-11.0 [facility] Comment on above: Performed By: #### P LT #### [facility] [address] [address] [address] Jannie Goodman POINT OF CARE GLUCOSEon 03-18 Glucose [Mass/Vol] 111 mg/dL Critically high 74-106 [facility] [place] Comment on above: Performed By: #### P LT #### [facility] [address] [address] [address] Jannie Goodman LDHon 03-31-2022 LDH 116 U/L Normal 81-234 [facility] Comment on above: Performed By: #### H CVPCRR #### [facility] [address] [address] [address] Jannie Goodman PLATELET COUNTon 03-31-2022 PLT 179 103/ul Normal 150-450 [facility] Comment on above: Performed By: #### P LT #### [facility] [address] [address] [address] Jannie Goodman PROF 14(COMP METB)on 022 Albumin [Mass/Vol] 2.6 g/dL Critically low 3.4-5.0 [facility] Comment on above: Performed By: #### H CVPCRR #### [facility] [address] [place] [address] Dr. Jannie Goodman Albumin/Globulin [Mass ratio] 0.7 {ratio} Normal [facility] Comment on above: Performed By: #### H CVPCRR #### [facility] [address] [address] [address] Jannie Goodman ALP [Catalytic activity/Vol] 144 U/L Critically high 46-116 [facility] Comment on above: Performed By: #### H CVPCRR #### [facility] [address] [place] [address] Dr. Jannie Goodman ALT [Catalytic activity/Vol] 16 U/L Normal 14-59 [facility] Comment on above: Performed By: #### H CVPCRR #### [facility] [address] [address] [address] Jannie Goodman Anion gap [Moles/Vol] 15.1 mmol/L Normal [facility] Comment on above: Performed By: #### H CVPCRR #### [facility] [address] [place] [address] Dr. Jannie Goodman AST [Catalytic activity/Vol] 13 U/L Critically low 15-37 [facility] Comment on above: Performed By: #### H CVPCRR #### [facility] [address] [address] [address] Jannie Goodman Bilirubin [Mass/Vol] 0.2 mg/dL Normal 0.2-1.0 [facility] Comment on above: Performed By: #### H CVPCRR #### [facility] [address] [address] [address] Jannie Goodman Calcium [Mass/Vol] 8.5 mg/dL Normal 8.5-10.1 [facility] Comment on above: Performed By: #### H CVPCRR #### [facility] [address] [place] [address] Dr. Jannie Goodman Chloride [Moles/Vol] 105 mmol/L Normal 98-107 [facility] Comment on above: Performed By: #### H CVPCRR #### [facility] [address] [place] [address] Dr. Jannie Goodman CO2 [Moles/Vol] 19.9 mmol/L Critically low 21.0-32.0 [facility] Comment on above: Performed By: #### H CVPCRR #### [facility] [address] [place] [address] Dr. Jannie Goodman Creatinine [Mass/Vol] 0.93 mg/dL Normal 0.55-1.02 [facility] Comment on above: Performed By: #### H CVPCRR #### [facility] [address] [place] [address] Dr. Jannie Goodman EGFR-AF SWAZI >60 Normal >=60 [facility] Comment on above: Performed By: #### H CVPCRR #### [facility] [address] [place] [address] Dr. Jannie Goodman EGFR-NON AF SWAZI >60 Normal >=60 [facility] Comment on above: Performed By: #### H CVPCRR #### [facility] [address] [place] [address] Dr. Jannie Goodman Globulin (S) [Mass/Vol] 3.9 g/dL Normal [facility] Comment on above: Performed By: #### H CVPCRR #### [facility] [address] [address] [address] Jannie Goodman Glucose [Mass/Vol] 121 mg/dL Critically high 74-[address] [facility] Comment on above: Performed By: #### H CVPCRR #### [facility] [address] [place] [address] Dr. Jannie Goodman Potassium [Moles/Vol] 4.0 mmol/L Normal 3.5-5.1 [facility] Comment on above: Performed By: #### H CVPCRR #### [facility] [address] [place] [address] Dr. Jannie Goodman Protein [Mass/Vol] 6.5 g/dL Normal 6.4-8.2 [facility] Comment on above: Performed By: #### H CVPCRR #### [facility] [address] [place] [address] Dr. Jannie Goodman Sodium [Moles/Vol] 136 mmol/L Normal 136-145 [facility] Comment on above: Performed By: #### H CVPCRR #### [facility] [address] [place] [address] Dr. Jannie Goodman Urea nitrogen [Mass/Vol] 14.0 mg/dL Normal 7.0-18.0 [facility] Comment on above: Performed By: #### H CVPCRR #### [facility] [address] [place] [address] Dr. Jannie Goodman Urea nitrogen/Creatinine [Mass ratio] 15.1 mg/mg Normal [facility] Comment on above: Performed By: #### H CVPCRR #### [facility] [address] [place] [address] Dr. Jannie Goodman URIC ACID SERUMon 03-31-2022 Urate [Mass/Vol] 7.3 mg/dL Critically high 2.6-6.0 [facility] Comment on above: Performed By: #### H CVPCRR #### [facility] [address] [place] [address] Dr. Jannie Goodman CBC AUTO DIFFon 03-30-2022 BASO # 0.0 103/ul Normal 0.0-0.1 [facility] Comment on above: Performed By: #### P LT #### [facility] [address] [address] [address] Jannie Goodman Basophils/100 WBC (Bld) 0.1 % Critically low 0.2-2.0 [facility] Comment on above: Performed By: #### P LT #### [facility] [address] [place] [address] Dr. Jannie Goodman EO # 0.0 103/ul Normal 0.0-0.7 [facility] Comment on above: Performed By: #### P LT #### [facility] [address] [place] [address] Dr. Jannie Goodman Eosinophils/100 WBC (Bld) 0.4 % Critically low 0.9-7.0 [facility] Comment on above: Performed By: #### P LT #### [facility] [address] [place] [address] Dr. Jannie Goodman Erythrocyte distribution width (RBC) [Ratio] 13.2 % Normal 11.0-15.0 [facility] Comment on above: Performed By: #### P LT #### [facility] [address] [place] [address] Dr. Jannie Goodman Hematocrit (Bld) [Volume fraction] 31.1 % Critically low 36.0-48.0 [facility] Comment on above: Performed By: #### P LT #### [facility] [address] [place] [address] Dr. Jannie Goodman Hemoglobin (Bld) [Mass/Vol] 10.2 g/dL Critically low 12.0-16.0 [facility] Comment on above: Performed By: #### P LT #### [facility] [address] [place] [address] Dr. Jannie Goodman IG # 0.01 10e3/ul Normal 0.00-0.03 [facility] Comment on above: Performed By: #### P LT #### [facility] [address] [place] [address] Dr. Jannie Goodman IG % 0.1 % Normal 0.0-0.5 [facility] Comment on above: Performed By: #### P LT #### [facility] [address] [address] [address] Jannie Goodman LYMPH # 1.7 103/ul Normal 1.2-3.8 [facility] Comment on above: Performed By: #### P LT #### [facility] [address] [address] [address] Jannie Goodman Lymphocytes/100 WBC (Bld) 25.7 % Normal 20.5-60.0 [facility] Comment on above: Performed By: #### P LT #### [facility] [address] [place] [address] Dr. Jannie Goodman MANUAL DIFF REQ NO Normal [facility] Comment on above: Performed By: #### P LT #### [facility] [address] [place] [address] Dr. Jannie Goodman MCH (RBC) [Entitic mass] 27.9 pg Normal 26.7-34.0 [facility] Comment on above: Performed By: #### P LT #### [facility] [address] [place] [address] Dr. Jannie Goodman MCHC (RBC) [Mass/Vol] 32.8 g/dL Normal 29.9-35.2 [facility] Comment on above: Performed By: #### P LT #### [facility] [address] [place] [address] Dr. Jannie Goodman MCV (RBC) [Entitic vol] 85.0 fL Normal 81.0-99.0 [facility] Comment on above: Performed By: #### P LT #### [facility] [address] [place] [address] Dr. Jannie Goodman MONO # 0.5 103/ul Normal 0.3-0.8 [facility] Comment on above: Performed By: #### P LT #### [facility] [address] [place] [address] Dr. Jannie Goodman Monocytes/100 WBC (Bld) 6.8 % Normal 1.7-12.0 [facility] Comment on above: Performed By: #### P LT #### [facility] [address] [address] [address] Jannie Goodman NEUT # 4.5 103/ul Normal 1.4-6.5 [facility] Comment on above: Performed By: #### P LT #### [facility] [address] [address] [address] Jannie Goodman Neutrophils/100 WBC (Bld) 66.9 % Normal 43.0-75.0 [facility] Comment on above: Performed By: #### P LT #### [facility] [address] [address] [address] Jannie Goodman Platelet mean volume (Bld) [Entitic vol] 10.6 fL Normal 9.5-13.5 [facility] Comment on above: Performed By: #### P LT #### [facility] [address] [place] [address] Dr. Jannie Goodman PLT 159 103/ul Normal 150-450 [facility] Comment on above: Performed By: #### P LT #### [facility] [address] [place] [address] Dr. Jannie Goodman RBC 3.66 106/ul Critically low 4.20-5.40 [facility] Comment on above: Performed By: #### P LT #### [facility] [address] [place] [address] Dr. Jannie Goodman WBC 6.7 103/ul Normal 4.0-11.0 [facility] Comment on above: Performed By: #### P LT #### [facility] [address] [place] [address] Dr. Jannie Goodman Covid-19 PCR ([facility])on 03-18 SARS-CoV-2 (COVID-19) RNA NADIA+probe Ql (Unsp spec) Not detected Normal NOT DETECTED [facility] Comment on above: Result Comment: When [...] for this test is supported by the Destination Coordinator of Health and Human Service's declaration that [...] longer be used). Performed By: #### [facility] ####[facility] [address] [address]Dr. Jannie Goodman DRUG SCREEN RAPID (URINE)on 03-30-2022 AMP Negative Normal NEGATIVE [facility] Comment on above: Performed By: #### P LT #### [facility] [address] [place] [address] Dr. Jannie Goodman BAR Negative Normal NEGATIVE [facility] Comment on above: Performed By: #### P LT #### [facility] [address] [place] [address] Dr. Jannie Goodman BUP Negative Normal NEGATIVE [facility] Comment on above: Performed By: #### P LT #### [facility] [address] [place] [address] Dr. Jannie Goodman BZO Negative Normal NEGATIVE [facility] Comment on above: Performed By: #### P LT #### [facility] [address] [place] [address] Dr. Jannie Goodman JEWEL Negative Normal NEGATIVE [facility] Comment on above: Performed By: #### P LT #### [facility] [address] [place] [address] Dr. Jannie Goodman CUT-OFFS SEE BELOW Normal [facility] Comment on above: Result Comment: AMP (Amphetamine): 500ng/mL, BAR (Barbituates): 200 ng/mL, BZO (Benzodiazepines): 150 ng/mL, BUP (Buprenorphine): 10 ng/mL, JEWEL (Cocaine): 150 ng/mL, mAMP (Methamphetamine): 500 ng/mL, MTD (Methadone): 200 ng/mL, OPI (Opiates): 100 ng/mL, OXY (Oxycodone): 100 ng/mL, PCP (Phencyclidine): 25 ng/mL, PPX (Propoxyphene): 300 ng/mL, THC (Cannabinoids): 50 ng/mL, TCA (Trycyclic Antidepressants): 300 ng/mL Performed By: #### P LT #### [facility] [address] [place] [address] Dr. Jannie Goodman DRUG CUT HEADER DRUG CLASS TEST SYSTEM CUT-OFF CONCENTRATIONS ARE FOLLOWS: Normal [facility] Comment on above: Performed By: #### P LT #### [facility] [address] [place] [address] Dr. Jannie Goodman mAMP Negative Normal NEGATIVE [facility] Comment on above: Performed By: #### P LT #### [facility] [address] [place] [address] Dr. Jannie Goodman MTD Negative Normal NEGATIVE [facility] Comment on above: Performed By: #### P LT #### [facility] [address] [place] [address] Dr. Jannie Goodman OPI Negative Normal NEGATIVE [facility] Comment on above: Performed By: #### P LT #### [facility] [address] [place] [address] Dr. Jannie Goodman OXY Negative Normal NEGATIVE [facility] Comment on above: Performed By: #### P LT #### [facility] [address] [place] [address] Dr. Jannie Goodman PCP Negative Normal NEGATIVE [facility] Comment on above: Performed By: #### P LT #### [facility] [address] [place] [address] Dr. Jannie Goodman PPX Negative Normal NEGATIVE [facility] Comment on above: Performed By: #### P LT #### [facility] [address] [place] [address] Dr. Jannie Goodman TCA Negative Normal NEGATIVE [facility] Comment on above: Performed By: #### P LT #### [facility] [address] [address] [address] Jannie Goodman THC Negative Normal NEGATIVE [facility] Comment on above: Performed By: #### P LT #### [facility] [address] [address] [address] Jannie Goodman LDHon 03-30-2022 LDH 118 U/L Normal 81-234 [facility] Comment on above: Performed By: #### C MP, URIC, LDH ####[facility] [address] [address]Dr. Jannie Goodman PROF 14(COMP METB)on 022 Albumin [Mass/Vol] 2.5 g/dL Critically low 3.4-5.0 [facility] Comment on above: Performed By: #### C MP, URIC, LDH ####[facility] [address] [address]Dr. Jannie Goodman Albumin/Globulin [Mass ratio] 0.7 {ratio} Normal [facility] Comment on above: Performed By: #### C MP, URIC, LDH ####[facility] [address] [address]Dr. Jannie Goodman ALP [Catalytic activity/Vol] 140 U/L Critically high 46-116 [facility] Comment on above: Performed By: #### C MP, URIC, LDH ####[facility] [address] [address]Dr. Jannie Goodman ALT [Catalytic activity/Vol] 13 U/L Critically low 14-59 [facility] Comment on above: Performed By: #### C MP, URIC, LDH ####[facility] [address] [address]Dr. Jannie Goodman Anion gap [Moles/Vol] 10.9 mmol/L Normal [facility] Comment on above: Performed By: #### C MP, URIC, LDH ####[facility] [address] [address]Dr. Jannie Goodman AST [Catalytic activity/Vol] 12 U/L Critically low 15-37 [facility] Comment on above: Performed By: #### C MP, URIC, LDH ####[facility] [address] [address]Dr. Jannie Goodman Bilirubin [Mass/Vol] 0.2 mg/dL Normal 0.2-1.0 [facility] Comment on above: Performed By: #### C MP, URIC, LDH ####[facility] [address] [address]Dr. Jannie Goodman Calcium [Mass/Vol] 8.6 mg/dL Normal 8.5-10.1 [facility] Comment on above: Performed By: #### C MP, URIC, LDH ####[facility] [address] [address]Dr. Jannie Goodman Chloride [Moles/Vol] 105 mmol/L Normal 98-107 [facility] Comment on above: Performed By: #### C MP, URIC, LDH ####[facility] [address] [place], [place] [address]Dr. Jannie Goodman CO2 [Moles/Vol] 24.1 mmol/L Normal 21.0-32.0 [facility] Comment on above: Performed By: #### C MP, URIC, LDH ####[facility] [address] [place], [place] [address]Dr. Jannie Goodman Creatinine [Mass/Vol] 0.90 mg/dL Normal 0.55-1.02 [facility] Comment on above: Performed By: #### C MP, URIC, LDH ####[facility] [address] [address]Dr. Jannie Goodman EGFR-AF SWAZI >60 Normal >=60 [facility] Comment on above: Performed By: #### C MP, URIC, LDH ####[facility] [address] [address]Dr. Jannie Goodman EGFR-NON AF SWAZI >60 Normal >=60 [facility] Comment on above: Performed By: #### C MP, URIC, LDH ####[facility] [address] [place], [place] [address]Dr. Jannie Goodman Globulin (S) [Mass/Vol] 3.8 g/dL Normal [facility] Comment on above: Performed By: #### C MP, URIC, LDH ####[facility] [address] [address]Dr. Jannie Goodman Glucose [Mass/Vol] 97 mg/dL Normal 74-106 [facility] Comment on above: Performed By: #### C MP, URIC, LDH ####[facility] [address] [address]Dr. Jannie Goodman Potassium [Moles/Vol] 4.0 mmol/L Normal 3.5-5.1 [facility] Comment on above: Performed By: #### C MP, URIC, LDH ####[facility] [address] [address]Dr. Jannie Goodman Protein [Mass/Vol] 6.3 g/dL Critically low 6.4-8.2 Th [facility] Comment on above: Performed By: #### C MP, URIC, LDH ####[facility] [address] [address]Dr. Jannie Goodman Sodium [Moles/Vol] 136 mmol/L Normal 136-145 [facility] Comment on above: Performed By: #### C MP, URIC, LDH ####[facility] [address] [address]DrKristopher Goodman Urea nitrogen [Mass/Vol] 16.0 mg/dL Normal 7.0-18.0 [facility] Comment on above: Performed By: #### C MP, URIC, LDH ####[facility] [address] [address]Dr. Jannie Goodman Urea nitrogen/Creatinine [Mass ratio] 17.8 mg/mg Normal [facility] Comment on above: Performed By: #### C MP, URIC, LDH ####[facility] [address] [address]DrKristopher Goodman TYPE AND SCREENon 03-30-2022 TYPE AND SCREEN Negative Normal [facility] Comment on above: Performed By: #### T NS #### [facility] [address] [address] [address] Jannie Goodman URIC ACID SERUMon 03-30-2022 Urate [Mass/Vol] 7.3 mg/dL Critically high 2.6-6.0 [facility] Comment on above: Performed By: #### C MP, URIC, LDH ####[facility] [address] [address]Dr. Jannie Goodman US PREG BIOPHY W NON [...] KETTY STEPHENSON Date: 2022-03-29 17:57 Normal [facility] US PREG BIOPHY W NON STRESSo [...] biophysical profile score: 8.0 Electronically authenticated by: CHANTELL RIBEIRO Date: 2022-03-23 16:49 Normal [facility] US PREG GROWTHon 03-23-2022 US PREG GROWTH [...] CHANTELL RIBEIRO Date: 2022-03-23 16:52 Normal [facility] US PREG BIOPHY W NON STRESSo [...] KETTY STEPHENSON Date: 2022-03-16 16:29 Normal [facility] VAGINITIS/VAGINOSIS DNA PROB Kodi 03-16-2022 Evelina species Negative Normal Negative [facility] Comment on above: Performed By: #### V AGINT #### [facility] [address] [place] [address] Dr. Jannie Goodman Gardnerella vaginalis Negative Normal Negative [facility] Comment on above: Performed By: #### V AGINT #### [facility] [address] [place] [address] Dr. Jannie Goodman Trichomonas vaginalis Negative Normal Negative [facility] Comment on above: Performed By: #### V AGINT #### [facility] [address] [place] [address] Dr. Jannie Goodman CHLAMYDIA/GONOCOCCUS NADIA ( AB/URINE/PAPon 03-15-2022 Chlamydia trachomatis, NADIA Negative Normal Negative [facility] Comment on above: Performed By: #### P LT #### [facility] [address], [place] [address] Dr. Jannie Goodman Neisseria gonorrhoeae, NADIA Negative Normal Negative [facility] Comment on above: Performed By: #### P LT #### [facility] [address], [place] [address] Dr. Jannie Goodman GROUP B STREP CULTUREon 02-17 S. agalactiae Ag Ql (Unsp spec) Culture Observations: NEGATIVE FOR GROUP B STREPTOCOCCUS. Normal [facility] Comment on above: Performed By: #### G BSCX ####[facility] [address] [place], [place] [address]YbDr. Jannie Goodman US PREG BIOPHY W NON [...] KETTY STEPHENSON Date: 2022-03-09 22:26 Normal [facility] US PREG GROWTHon 03-10-2022 US PREG [...] by: KETTY STEPHENSON Date: 2022-03-09 22:14 Normal [facility] US PREG BIOPHY W NON STRESSo [...] by: KETTY STEPHENSON Date: 2022-03-02 16:44 Normal [facility] US PREG BIOPHY W NON STRESSo [...] by: KETTY STEPHENSON Date: 2022-02-23 16:29 Normal [facility] US PREG BIOPHY W NON STRESSo [...] by: KETTY STEPHENSON Date: 2022-02-15 16:15 Normal [facility] US PREG BIOPHY W NON STRESSo [...] by: KETTY STEPHENSON Date: 2022-02-09 17:11 Normal [facility] US PREG BIOPHY W NON STRESS EXAMINATION: [...] by: KETTY STEPHENSON Date: 2022-02-08 22:03 Normal [facility] US PREG GROWTHon 02-08-2022 US PREG GROWTH [...] KETTY STEPHENSON Date: 2022-02-08 13:11 Normal [facility] US PREG GROWTHon 01-11-2022 US PREG [...] KETTY STEPHENSON Date: 2022-01-11 16:31 Normal [facility] HEMOGRAM AND PLATELon 2021 Hematocrit (Bld) [Volume fraction] 29.6 % Critically low 36.0-48.0 [facility] Comment on above: Performed By: #### H H ####[facility] [address] [id number] Jannie Rex Hemoglobin (Bld) [Mass/Vol] 9.9 g/dL Critically low 12.0-16.0 [facility] Comment on above: Performed By: #### H H ####[facility] [address] [address]Dr. Jannie Goodman MCH (RBC) [Entitic mass] 29.6 pg Normal 26.7-34.0 [facility] Comment on above: Performed By: #### H H ####[facility] [address] [address]Dr. Jannie Goodman MCHC (RBC) [Mass/Vol] 33.4 g/dL Normal 29.9-35.2 [facility] Comment on above: Performed By: #### H H ####[facility] [address] [address]Dr. Jannie Goodman MCV (RBC) [Entitic vol] 88.6 fL Normal 81.0-99.0 [facility] Comment on above: Performed By: #### H H ####[facility] [address] [address]Dr. Jannie Goodman PLT 180 103/ul Normal 150-450 [facility] Comment on above: Performed By: #### H H ####[facility] [address] [address]Dr. Jannie Goodman RBC 3.34 106/ul Critically low 4.20-5.40 [facility] Comment on above: Performed By: #### H H ####[facility] [address] [address]Dr. Jannie Goodman WBC 10.5 103/ul Normal 4.0-11.0 [facility] Comment on above: Performed By: #### H H ####[facility] [address] [place], [place] [address]Dr. Jannie Goodman US PREG ANATOMY SINGLEon US [...] KETTY STEPHENSON Date: 2021-11-16 09:37 Normal [facility] GTT 3 HR PREGon 11-15-2021 Glucose [Mass/Vol] 106 mg/dL Normal 74-106 [facility] Comment on above: Performed By: #### H CVPCRR #### [facility] [address] [address] [address] Jannie Goodman Glucose [Mass/Vol] 188 mg/dL Normal [facility] Comment on above: Performed By: #### H CVPCRR #### [facility] [address] [address] [address] Jannie Goodman Glucose [Mass/Vol] 161 mg/dL Normal [facility] Comment on above: Performed By: #### H CVPCRR #### [facility] [address] [address] [address] Jannie Goodman Glucose [Mass/Vol] 127 mg/dL Normal [facility] Comment on above: Performed By: #### H CVPCRR #### [facility] [address] [address] [address] Jannie Goodman AFP MATERNAL FOR SPINA BIFID Aon 11-06-2021 AFP MoM 0.96 Normal [facility] Comment on above: Performed By: #### A FPMAT ####[facility] [address] [address]DrKristopher Goodman AFP Value 34.7 ng/mL Normal [facility] Comment on above: Performed By: #### A FPMAT ####[facility] [address] [address]DrKristopher Goodman AFP, Serum for Spina Bifida Report Normal [facility] Comment on above: Performed By: #### A FPMAT ####[facility] [address] [address]DrKristopher Goodman Comment Comment Normal [facility] Comment on above: Result Comment: Raffaele Jones, Ph.D., [facility] Director . References: Available Upon Request. . Multiples Of Median Cutoffs For AFP Elevations Perdomo 2.5 Black 2.8 IDD 2.0 Twins 4.5 Abbreviation Definitions IDD - Insulin Dep Diabetes OSBR - Open Spina Bifida Risk . For further inquiries contact [email or web address] [facility] at [phone]. Performed By: #### A FPMAT ####[facility] [address] [address]DrKristopher Goodman Gest Age Collection Date 18.3 weeks Normal [facility] Comment on above: Performed By: #### A FPMAT ####[facility] [address] [address]DrKristopher Goodman Gestat, Age Based on STEFAN Normal [facility] Comment on above: Result Comment: 03/18 Recalculations are not recommended when gestational dating by LMP and ultrasound are within 10 days. Performed By: #### A FPMAT ####[facility] [address] [address]DrKristopher Goodman Insulin Dep Diabetes No Normal [facility] Comment on above: Performed By: #### A FPMAT ####[facility] [address] [address]Dr. Jannie Goodman Interpretation Comment Normal [facility] Comment on above: Result Comment: Inte rpretation: [...] Customer Services to discuss available options. The [employer] recommends amniocentesis be offered to women age 35 and older. Performed By: #### A FPMAT ####[facility] [address] [address]Dr. Jannie Goodman [age] Normal [facility] Comment on above: Performed By: #### A FPMAT ####[facility] [address] [address]Dr. Jannie Goodman Multiple Gestation No Normal [facility] Comment on above: Performed By: #### A FPMAT ####[facility] [address] [address]Dr. Jannie Goodman OSBR Risk 1 [place] [address] Normal [facility] Comment on above: Performed By: #### A FPMAT ####[facility] [address] [address]Dr. Jannie Goodman PDF . Normal [facility] Comment on above: Performed By: #### A FPMAT ####[facility] [address] [address]Dr. Jannie Goodman Race Normal [facility] Comment on above: Performed By: #### A FPMAT ####[facility] [address] [address]Dr. Jannie Goodman Test Results: Negative Normal [facility] Comment on above: Performed By: #### A FPMAT ####[facility] [address] [address]Dr. Jannie Goodman GLUCOSE - 1HRon 10-18-2021 Glucose [Mass/Vol] 164 mg/dL Critically high 74-106 T [facility] Comment on above: Performed By: #### P LT #### [facility] [address] [address] [address] Jannie Goodman PHIL BOX TEST PT SEND OUTo n 09-26-2021 SENT TO REF LAB 09/26/2021 Normal [facility] Comment on above: Performed By: #### P LT #### [facility] [address] [address] [address] Jannie Goodman RUBELLA AB IGGon 09-16-2021 Rubella Antibodies, IgG 1.08 index Normal Immune >0.99 [facility] Comment on above: Result Comment: Non- immune <0.90 Equivocal 0.90 - 0.99 Immune >0.99 Performed By: #### P LT #### [facility] [address] [place] [address] Dr. Jannie Goodman HEP B SURFACE ANTIGEN SCREEN on 09-15-2021 HBsAg Screen Negative Normal Negative [facility] Comment on above: Performed By: #### H BSANS ####[facility] [address] [address]Dr. Jannie Goodman HEPATITIS C VIRUS AB W/ REFL EX QUANTon 09-15-2021 HCV AB <0.1 Normal 0.0-0.9 [facility] Comment on above: Performed By: #### H CVPCRR #### [facility] [address] [place] [address] Dr. Jannie Goodman Interpretation: Comment Normal [facility] Comment on above: Result Comment: Nega tive Not infected with HCV, unless recent infection is suspected or other evidence exists to indicate HCV infection. Performed By: #### H CVPCRR #### [facility] [address] [place] [address] Dr. Jannie Goodman HIV 1 AND 2 WITH REFLEXon HIV Screen 4th Generation wRfx Non-Reactive Normal Non Reactive [facility] Comment on above: Result Comment: HIV Negative HIV-1/HIV-2 antibodies and HIV-1 p24 antigen were NOT detected. There is no laboratory evidence of HIV infection. Performed By: #### H IV12 ####[facility] [address] [place], [place] [address]HhDr. Jannie Goodman RPR QUANTon 09-15-2021 Rapid Plasma Reagin, Quant Non-Reactive Normal NonRea<1:1 [facility] Comment on above: Result Comment: Anat castaneda Note: This test does not meet current guidelines for screening and diagnosis of syphilis. This test is intended for following treatment response in patients being treated for syphilis infection. To screen for syphilis infection, a reflex cascade that includes both RPR and a treponema-specific assay should be utilized, such as Treponema pallidum (Syphilis) Screening [place] (485331) or Rapid Plasma Reagin (RPR) Test With Reflex to Quantitative RPR and Confirmatory Treponema pallidum Antibodies (562619). Performed By: #### R PRQ #### [facility] [address] [place] [address] Dr. Jannie Goodman CBC AUTO DIFFon 09-14-2021 BASO # 0.0 103/ul Normal 0.0-0.1 [facility] Comment on above: Performed By: #### P LT #### [facility] [address] [place] [address] Dr. Jannie Goodman Basophils/100 WBC (Bld) 0.2 % Normal 0.2-2.0 [facility] Comment on above: Performed By: #### P LT #### [facility] [address] [place] [address] Dr. Jannie Goodman EO # 0.1 103/ul Normal 0.0-0.7 [facility] Comment on above: Performed By: #### P LT #### [facility] [address] [place] [address] Dr. Jannie Goodman Eosinophils/100 WBC (Bld) 0.7 % Critically low 0.9-7.0 [facility] Comment on above: Performed By: #### P LT #### [facility] [address] [place] [address] Dr. Jannie Goodman Erythrocyte distribution width (RBC) [Ratio] 13.3 % Normal 11.0-15.0 [facility] Comment on above: Performed By: #### P LT #### [facility] [address] [address] [address] Jannie Goodman Hematocrit (Bld) [Volume fraction] 34.2 % Critically low 36.0-48.0 [facility] Comment on above: Performed By: #### P LT #### [facility] [address] [place] [address] Dr. Jannie Goodman Hemoglobin (Bld) [Mass/Vol] 11.3 g/dL Critically low 12.0-16.0 [facility] Comment on above: Performed By: #### P LT #### [facility] [address] [place] [address] Dr. Jannie Goodman IG # 0.03 10e3/ul Normal 0.00-0.03 [facility] Comment on above: Performed By: #### P LT #### [facility] [address] [place] [address] Dr. Jannie Goodman IG % 0.4 % Normal 0.0-0.5 [facility] Comment on above: Performed By: #### P LT #### [facility] [address] [place] [address] Dr. Jannie Goodman LYMPH # 2.3 103/ul Normal 1.2-3.8 [facility] Comment on above: Performed By: #### P LT #### [place] [facility] [address] [place] [address] Dr. Jannie Goodman Lymphocytes/100 WBC (Bld) 27.9 % Normal 20.5-60.0 [facility] Comment on above: Performed By: #### P LT #### [facility] [address] [place] [address] Dr. Jannie Goodman MANUAL DIFF REQ NO Normal [facility] Comment on above: Performed By: #### P LT #### [facility] [address] [place] [address] Dr. Jannie Goodman MCH (RBC) [Entitic mass] 28.0 pg Normal 26.7-34.0 [facility] Comment on above: Performed By: #### P LT #### [facility] [address] [address] [address] Jannie Goodman MCHC (RBC) [Mass/Vol] 33.0 g/dL Normal 29.9-35.2 [facility] Comment on above: Performed By: #### P LT #### [facility] [address] [address] [address] Jannie Goodman MCV (RBC) [Entitic vol] 84.9 fL Normal 81.0-99.0 [facility] Comment on above: Performed By: #### P LT #### [facility] [address] [address] [address] Jannie Goodman MONO # 0.5 103/ul Normal 0.3-0.8 [facility] Comment on above: Performed By: #### P LT #### [facility] [address] [place] [address] Dr. Jannie Goodman Monocytes/100 WBC (Bld) 6.4 % Normal 1.7-12.0 [facility] Comment on above: Performed By: #### P LT #### [facility] [address] [address] [address] Jannie Goodman NEUT # 5.2 103/ul Normal 1.4-6.5 [facility] Comment on above: Performed By: #### P LT #### [facility] [address] [place] [address] Dr. Jannie Goodman Neutrophils/100 WBC (Bld) 64.4 % Normal 43.0-75.0 [facility] Comment on above: Performed By: #### P LT #### [facility] [address] [address] [address] Jannie Goodman Platelet mean volume (Bld) [Entitic vol] 9.1 fL Critically low 9.5-13.5 [facility] [place] [facility] Comment on above: Performed By: #### P LT #### [facility] [address] [address] [address] Jannie Goodman PLT 199 103/ul Normal 150-450 [facility] Comment on above: Performed By: #### P LT #### [facility] [address] [address] [address] Jannie Goodman RBC 4.03 106/ul Critically low 4.20-5.40 [facility] Comment on above: Performed By: #### P LT #### [facility] [address] [address] [address] Jannie Goodman WBC 8.1 103/ul Normal 4.0-11.0 [facility] Comment on above: Performed By: #### P LT #### [facility] [address] [address] [address] Jannie Goodman CULTURE URINEon 09-14-2021 CULTURE URINE Culture Observations: MODERATE GROWTH OF MIXED GENITAL CHIKIS. NO POTENTIAL PATHOGENS SEEN. Normal [facility] Comment on above: Performed By: #### U RCX #### [facility] [address] [address] [address] Jannie Goodman GLYCOHEMOGLOBIN A1Con 2021 ADA RECOMMENDATION ADA THERAPEUTIC TARGET 6.0 - 7.0 ACTION SUGGESTED > 7.0 Normal [facility] Comment on above: Performed By: #### P LT #### [facility] [address] [address] [address] Jannie Goodman Glucose [Mass/Vol] 117 mg/dL Normal [facility] Comment on above: Performed By: #### P LT #### [facility] [address] [address] [address] Jannie Goodman HbA1c (Bld) [Mass fraction] 5.7 % Normal <=6.0 [facility] Comment on above: Performed By: #### P LT #### [facility] [address] [address] [address] Jannie Goodman TYPE AND SCREENon 09-14-2021 TYPE AND SCREEN Negative Normal [facility] Comment on above: Performed By: #### T NS ####[facility] [id number] [address] Jannie Goodman US PREG TVon 08-26-2021 US [...] by: KETTY STEPHENSON Date: 2021-08-26 09:42 Normal [facility] Vital Signs Date Time Vital Sign Value Performing Clinician Facility 03-20-2024 15:25-0400 Body height 167.6 cm [facility] 03-20-2024 15:25-0400 Body mass index (BMI) [Ratio] 36.96 kg/m2 [facility] 03-20-2024 15:25-0400 Body temperature 98.4 [degF] [facility] 03-20-2024 15:25-0400 Body weight 103.87 kg [employer] [facility] 03-20-2024 15:25-0400 Diastolic blood pressure 86 mm[Hg] [facility] [facility] 03-20-2024 15:25-0400 Heart rate 80 /min [employer] [facility] 03-20-2024 15:25-0400 Respiratory rate 18 /min [employer] [facility] 03-20-2024 15:25-0400 SaO2% (BldA) [Mass fraction] 99 % [employer] Work Phone: [facility] 03-20-2024 15:25-0400 Systolic blood pressure 130 mm[Hg] Nghia Melgoza DO Work Phone: [facility] 08-11-2022 14:25-0500 Body height 166.37 cm Rekha Ramos Other [facility] Other 08-11-2022 14:25-0500 Body mass index (BMI) [Ratio] 39.95 kg/m2 Rekha Carcamoault Other [facility] Other 08-11-2022 14:25-0500 Body temperature 98.9 [degF] Rekha Carcamoault Other [facility] Other 08-11-2022 14:25-0500 Body weight 110.59 kg Rekha Richard Other [facility] Other 08-11-2022 14:25-0500 Diastolic blood pressure 88 mm[Hg] Rekha Carcamoault Other [facility] Other 08-11-2022 14:25-0500 Respiratory rate 16 /min Rekha Richard Other [facility] Other 08-11-2022 14:25-0500 SaO2% (BldA) [Mass fraction] 99 % Rekha Carcamoault Other [facility] Other 08-11-2022 14:25-0500 Systolic blood pressure 132 mm[Hg] Rekha Richard Other [facility] Other 11-06-2021 02:06-0400 Body weight 106.[address] MINA HERNANDEZ [facility] Comment on above: Performed By: #### AFPMAT ####[facility] [id number] [place], [place] [address]SxKristopher Goodman Encounters Encounter Date Encounter Type Care Provider Facility Start: 07-08-2024 End: 07-08-2024 Bamboo flowsheet Mina Mary DO Work Phone: [facility] Start: 07-08-2024 End: 07-08-2024 Bamboo flowsheet Mina Mary DO Work Phone: [facility] Start: 05-07-2024 End: 05-07-2024 [facility] Comment on above: Anxiety Start: 03-20-2024 End: 03-20-2024 ambulatory [facility] Start: 03-20-2024 Encounter for genera l adult medical examination without abnormal findings [facility] Start: 03-20-2024 End: 03-20-2024 Patient encounter status [place] DO Work Phone: [facility] Work Phone: Start: 03-20-2024 End: 03-20-2024 Periodic preventive med est patient 18-39 yrs Nghia Gloriajabier DO Work Phone: [facility] Comment on above: Well adult health ch sandi (Primary Dx); Class 2 obesity due to excess calories without serious comorbidity with body mass index (BMI) of 38.0 to 38.9 in adult; Bipolar depression ([facility]) Start: 03-20-2024 End: 03-20-[address] [facility] Start: 03-20-2024 Encounter for genera l adult medical examination without abnormal findings [facility] Start: 01-31-2024 End: 01-31-[address] [facility] Start: 01-01-2024 End: 01-01-2024 ambulatory NGHIA [facility] Start: 07-04-2023 End: 07-04-2023 ambulatory ZURI Gramajo KHANH Not Available Start: 07-02-2023 End: 07-02-2023 ambulatory MINA HERNANDEZ Not Available Start: 05-07-2023 End: 05-07-2023 ambulatory ZURI Gramajo CASSIDY Not Available Start: 08-11-2022 End: 08-11-2022 ambulatory Rekha Ramos Other [place] [facility] Other Start: 08-11-2022 Office outpatient vi sit [...] Facility:[facility] Start: 03-13-2022 End: 03-13-[address] MIAN HERNANDEZ Facility:[facility] Start: 03-08-2022 End: 03-08-2022 ambulatory [...] Adult BMI Screening Adult BMI Screen ing [facility] Start: 03-20-2025 Tobacco Screening Tobacco Screening [facility] Start: 09-22-2024 End: 09-22-2024 Patient encounter procedure 09/22/2024 4:00 PM EDT Office Visit [facility] [address] [place] [address] Nghia Melgoza, [address], [place] [address] [facility] Start: 07-08-2024 End: 07-08-2024 Patient encounter procedure 07/08/2024 11:00 AM EST Office Visit [facility] [address] [place] [id number] Mina Hernandez DO [address] [place] [address] Arrived [facility] Comment on above: Arrived Start: 04-16-2024 Adult BMI Follow Up Plan Adult BMI Follow Up Plan [facility] Start: 04-16-2024 Depression Screening Depression Scre ening [facility] Start: 02-17-2024 Influenza vaccination Influenza Vacc ine [facility] Start: 2018 Screening for malign ant neoplasm of cervix Pap Smear [facility] Start: 2016 DTaP,Tdap and Td Vaccines (1 - Tdap) DTaP,Tdap and Td Vaccines (1 - Tdap) [facility] End: 03-20-2025 Comprehensive metabolic 2000 panel - Serum or Plasma Comprehensive metabolic panel Lab Routine Well adult health check 1 Occurrences starting 03/20/2024 until 03/20/2025 [facility] Work Phone: Comment on above: 1 Occurrences starti ng 03/20/2024 until 03/20/2025 End: 03-20-2025 Lipid panel Lipid panel Lab Routine Well adult health check 1 Occurrences starting 03/20/2024 until 03/20/2025 [facility] Comment on above: 1 Occurrences starti ng 03/20/2024 until 03/20/2025 End: 03-20-2025 Thyrotropin [Units/volume] in Serum or Plasma TSH Lab Routine Class 2 obesity due to excess calories without serious comorbidity with body mass index (BMI) of 38.0 to 38.9 in adult 1 Occurrences starting 03/20/2024 until 03/20/2025 [facility] Comment on above: 1 Occurrences starti ng 03/20/2024 until 03/20/2025 Payers Date Payer Category Payer Managed Care Other (unspecified) [employer] [id number] 2022 Private Health Insurance [id number] 2022 Unknown [id number] 1997 Unknown [id number] 2.16.840.1.953118.3.579. 2.593 1997 Unknown [id number] 2.16.840.1.232715.3.579. 2.593 1997 Unknown [id number] 2.16.840.1.662855.3.579. 2.593 1997 Unknown [id number] 2.16.840.1.932945.3.579. 2.593 1997 Unknown [id number] 2.16.840.1.005157.3.579. 2.593 1997 Unknown [id number] 2.16.840.1.153938.3.579. 2.593 1997 Unknown [id number] 2.16.840.1.217438.3.579. 2.593 1997 Unknown [id number] 2.16.840.1.985072.3.579. 2.593 1997 Unknown [id number] 2.16.840.1.254677.3.579. 2.593 1997 Unknown [id number] 2.16.840.1.321016.3.579. 2.593 1997 Unknown [id number] 2.16.840.1.599032.3.579. 2.593 1997 Unknown [id number] 2.16.840.1.562779.3.579. 2.593 1997 Unknown [id number] 2.16.840.1.252559.3.579. 2.593 1997 Unknown [id number] 2.16.840.1.932771.3.579. 2.593 1997 Unknown [id number] 2.16.840.1.097243.3.579. 2.593 1997 Unknown [id number] 2.16.840.1.605817.3.579. 2.593 1997 Unknown [id number] 2.16.840.1.246993.3.579. 2.593 1997 Unknown [id number] 2.16.840.1.710014.3.579. 2.593 1997 Unknown [id number] 2.16.840.1.194635.3.579. 2.593 1997 Unknown [id number] 2.16.840.1.597702.3.579. 2.593 1997 Unknown [id number] 2.16.840.1.172882.3.579. 2.593 1997 Unknown [id number] 2.16.840.1.651480.3.579. 2.593 1997 Unknown [id number] 2.16.840.1.507688.3.579. 2.593 1997 Unknown [id number] 2.16.840.1.474993.3.579. 2.593 1997 Unknown [id number] 2.16.840.1.210634.3.579. 2.593 1997 Unknown [id number] 2.16.840.1.089330.3.579. 2.1259 1997 Unknown [id number] 2.16.840.1.519489.3.579. 2.1259 1997 Unknown [id number] 2.16.840.1.368124.3.579. 2.1259 1997 Unknown [id number] 2.16.840.1.887907.3.579. 2.1286 1997 Unknown [id number] 2.16.840.1.580349.3.579. 2.1286 1997 Unknown [id number] 2.16.840.1.852785.3.579. 2.1286 1997 Unknown [id number] 2.16.840.1.027142.3.579. 2.1286 1959 Self-pay 1959 Unknown [id number] 1959 Unknown [id number] Unknown [id number] 2.16.840.1.547283.3.579. 2.593 Social History Date Type Detail Facility Unknown if ever smoked [facility] Other Start: 12-05-2022 End: 04-16-2023 Sex Assigned At [facility] Other Start: 12-05-2022 End: 04-16-2023 Tobacco smoking status NHIS Never smoked tobacco [facility] Start: 12-05-2022 End: 04-16-2023 Tobacco use and exposure Smokeless tobacco non-user [facility] Start: 03-20-2024 Alcoholic beverage intake Current drinker of alcohol (finding) [facility] Start: 12-05-2022 End: 04-16-2023 History of Social function [facility] Has the [employer], [employer], or [employer] threatened to shut off services in your home in past 12Mo No [facility] Are you now , , , , never or living with a partner? [facility] How often to you hav e a drink containing alcohol? Monthly or less [facility] How many standard drinks containing alcohol do you have on a typical day? 1 or 2 [facility] How often do you hav e 6 or more drinks on 1 occasion? Never [facility] How hard is it for y ou to pay for the very basics like food, housing, medical care, and heating Not hard at all [facility] Do you feel stress - tense, restless, nervous, or anxious, or unable to sleep at night because your mind is troubled all the time - these days [OSQ] Only a little [facility] Start: 04-16-2023 Alcohol Comment rarely [facility] Start: 1997 Sex assigned at Not on file [facility] Start: 01-21-2015 Sex Female (finding) [facility] Start: 07-02-2023 Alcoholic beverage intake Lifetime non-drinker (finding) [facility] Start: 1995 Sex assigned at Female [facility] Start: 01-24-2023 Gender identity Identifies as female gender (finding) [facility] Start: 01-24-2023 Sexual orientation Heterosexual (finding) [facility] History of Present illness Narrative 03-20-2024 [...] TSH. Diet and exercise discussed. Bipolar depression ([facility]) Stable. Continue current regimen. documented in this encounter [facility] Evaluation note 08-11-2022 Note Date & [...] therapy Jul, Sore throat (ICD-10 - J02.9) [facility] Other Clinical Note 03-30-2022 Note Date & Type Note Facility 03-30-2022 Note OPERATIVE NOTE OPERATION DATE: 04/01/2022 PROCEDURE: Primary low transverse section. PREOPERATIVE DIAGNOSIS: 1. Intrauterine at 39 weeks. 2. Failure to descend. 3. Failure to dilate. POSTOPERATIVE DIAGNOSIS: 1. Intrauterine at 39 weeks. 2. Failure to descend. 3. Failure to dilate. ANESTHESIA: Epidural with Duramorph. SURGEON: Mnia Hernandez D.O. IMPREGNATING TANK OPERATOR: ROSSANA Lewis URINE OUTPUT: Yellow and [...] the Recovery Room in stable condition. [facility] Discharge summary note 03-30-2022 Note Date [...] free and no longer on narcotics. [facility] Evaluation note Note Date & Type Note Facility Evaluation note Diagnosis Well adult health check- Primary Unspecified general medical examination Class 2 obesity due to excess calories without serious comorbidity with body mass index (BMI) of 38.0 to 38.9 in adult Bipolar depression ([facility]) Bipolar I disorder, most recent episode (or [...] History wisdom teeth Surgical History Csection 2021 [facility] Other Instructions Note Date & Type Note [...] and content) DATE CREATED AUTHOR [facility]/03/2022 [facility] DATE CREATED AUTHOR AUTHOR'S ORGANIZ ATION 07/05/2023 [facility] EPIC DATE CREATED AUTHOR AUTHOR'S ORGANIZ ATION 03/22/2024 [facility] DATE CREATED AUTHOR AUTHOR'S ORGANIZ ATION 03/22/2024 [facility] REASON FOR VISIT (unrecogniz ed section and content) Reason Comments Annual Exam Reason Comments Med Refill Care Teams (unrecognized sec tion and content) Tax Lawyer Relationship Specialty Start Date End Date Nghia Melgoza DO [address] [facility], [place] [address] PCP - General Family Medicine 12/27/23 Tax Lawyer Relationship Specialty Start Date End Date Nghia Melgoza DO [address] [place] [address] PCP - General Family Medicine 12/27/23 Tax Lawyer Relationship Specialty Start Date End Date Isaac Perez MD [address], [place] [id number] PCP - General Family Medicine 11/20/22 FOR [...] BE BASED ON THE PRIMARY CLINICAL RECORDS. [employer] provides no warranty or guarantee of the accuracy or completeness of information in this document.
== END 2024-07-08 00:01 | disposition home or self-care (01) ==
LOC: LAB
PROVIDERS: Visit Provider Obstetrics & Gynecology
DX: Z01.419 Encounter for gynecological examination (general) (routine) without abnormal findings (principal)
CPT/HCPCS: 88175